=== PATIENT | female | born 1970 | race Two or more races ===

== ENCOUNTER 2016-07-16 09:58 | Emergency (ER) | payer MEDICAID ==
--- NOTE | 2016-07-16 10:05 | ER Document Report ---
ED Medical Screen (RME) - General Chief Complaint: Abdominal Pain Stated Complaint: ABDOMINAL PAIN Mode of Arrival: Ambulatory Information source: Patient Notes: Patient complains left-sided abdominal pain for the past several days. Patient also reports nausea. Patient denies any fever or urinary symptoms. hx: Diabetes, depression, anxiety, hypertension I have greeted and performed a rapid initial assessment of this patient. A comprehensive ED assessment and evaluation of the patient, analysis of test results and completion of the medical decision making process will be conducted by additional ED providers. TRAVEL OUTSIDE OF THE [place] IN LAST 30 DAYS: No - Related Data Allergies/Adverse Reactions: amoxicillin [Amoxicillin] Allergy (Verified 07/16/16 09:59) "slophylline" Allergy (Uncoded 07/16/16 09:59) Past Medical History - Social History Chew tobacco use (# tins/day): No Frequency of alcohol use: None Drug Abuse: None - Past Medical History Cardiac Medical History: Reports: Hx Hypertension Pulmonary Medical History: Reports: Hx Asthma Endocrine Medical History: Reports: Hx Diabetes Mellitus Type 1 Renal/ Medical History: Denies: Hx Peritoneal Dialysis Psychiatric Medical History: Reports: Hx Depression - depression and anxiety Past Surgical History: Reports: Hx Section - x3 - Immunizations Hx Diphtheria, Pertussis, Tetanus Vaccination: Yes Physical Exam - Vital signs Vitals: Temp Pulse Resp BP Pulse Ox 98.1 F 95 14 153/87 H 97 07/16/16 10:02 07/16/16 10:02 07/16/16 10:02 07/16/16 10:02 07/16/16 10:02 - Abdominal Tenderness: Tender - Left upper quadrant Course - Vital Signs Vital signs: Temp Pulse Resp BP Pulse Ox 98.1 F 95 14 153/87 H 97 07/16/16 10:02 07/16/16 10:02 07/16/16 10:02 07/16/16 10:02 07/16/16 10:02
[2016-07-16 11:04] LABS: ABSOLUTE BASOPHILS # (AUTO) 0.1 10^3/uL (0.0-0.2); ABSOLUTE EOSINOPHILS # (AUTO) 0.3 10^3/uL (0.0-0.6); ABSOLUTE LYMPHOCYTES (AUTO) 2.2 10^3/uL (0.5-4.7); ABSOLUTE MONOCYTES (AUTO) 0.4 10^3/uL (0.1-1.4); ABSOLUTE NEUT (AUTO) 5.9 10^3/uL (1.7-8.2); BASOPHILS % (AUTO) 0.6 % (0-2); EOSINOPHILS % (AUTO) 3.1 % (0-6); HEMATOCRIT 39.1 % (36.0-47.0); HEMOGLOBIN 13.2 g/dL (12.0-15.5); HGB HCT DIFFERENCE 0.5; LYMPHOCYTES % (AUTO) 24.4 % (13-45); MEAN CORPUSCULAR HEMOGLOBIN 26.8 pg (27.0-33.4); MEAN CORPUSCULAR HGB CONC 33.7 g/dL (32.0-36.0); MEAN CORPUSCULAR VOLUME 80 fl (80-97); RED BLOOD COUNT 4.91 10^6/uL (3.72-5.28); RED CELL DISTRIBUTION WIDTH 14.6 % (11.5-14.0); SEGMENTED NEUTROPHILS % (AUTO) 66.9 % (42-78); WHITE BLOOD COUNT 8.8 10^3/uL (4.0-10.5)
[2016-07-16 11:15] LABS: APPEARANCE,URINE CLEAR; BILIRUBIN,URINE NEGATIVE (NEGATIVE); GLUCOSE, URINE >=500 mg/dL (NEGATIVE); KETONES,URINE NEGATIVE (NEGATIVE); LEUKOCYTE ESTERASE,URINE NEGATIVE (NEGATIVE); NITRITE,URINE NEGATIVE (NEGATIVE); PROTEIN,URINE NEGATIVE (NEGATIVE); URINE SPECIFIC GRAVITY 1.025; UROBILINOGEN,URINE NEGATIVE mg/dL (<2.0)
[2016-07-16 11:20] LABS: PROTHROMBIN TIME 12.2 SEC (11.4-15.4)
[2016-07-16 11:21] LABS: PARTIAL THROMBOPLASTIN TIME 31.9 SEC (23.5-35.8)
--- NOTE | 2016-07-16 11:24 | ER Document Report ---
ED GI/ - General Chief Complaint: Abdominal Pain Stated Complaint: ABDOMINAL PAIN Mode of Arrival: Ambulatory Information source: Patient TRAVEL OUTSIDE OF THE [place] IN LAST 30 DAYS: No - HPI Patient complains to provider of: Abdominal pain Onset: Other - 2 DAYS AGO Timing/Duration: Gradual Quality of pain: Dull, Pressure, Other - TENDERNESS Severity at maximum: Moderate Severity in ED: Almost gone Context: denies: Bad food, Lifting, Out of the country travel, , Recent trauma Location: LUQ, RUQ Vaginal bleeding (Compared to normal period): None Menstrual period history: denies: Associated symptoms: Blood in stool - SMALL AMTS., Diarrhea, Nausea. denies: Chills, Fever Exacerbated by: Movement, Other - EXTERNAL PRESSURE Relieved by: Remaining still Similar symptoms previously: No Recently seen / treated by doctor: Yes - PCP, BP MED CHANGED TO [facility] - Related Data Allergies/Adverse Reactions: amoxicillin [Amoxicillin] Allergy (Verified 07/16/16 09:59) "slophylline" Allergy (Uncoded 07/16/16 09:59) Past Medical History - General Information source: Patient - Social History Smoking Status: Current Every Day Smoker Chew tobacco use (# tins/day): No Frequency of alcohol use: Rare Drug Abuse: None Lives with: Family Family History: Reviewed & Not Pertinent Patient has suicidal ideation: No Patient has homicidal ideation: No - Past Medical History Cardiac Medical History: Reports: Hx Hypertension Pulmonary Medical History: Reports: Hx Asthma Neurological Medical History: Reports: None Endocrine Medical History: Reports: Hx Diabetes Mellitus Type 1 Renal/ Medical History: Reports: None. Denies: Hx Peritoneal Dialysis Malignancy Medical History: Reports: None GI Medical History: Reports: Hx Hiatal Hernia Musculoskeltal Medical History: Reports None Psychiatric Medical History: Reports: Hx Attention Deficit Hyperactivity Disorder, Hx Depression - depression and anxiety Past Surgical History: Reports: Hx Section - x3, Hx Dilation and Curettage - Immunizations Hx Diphtheria, Pertussis, Tetanus Vaccination: Yes Review of Systems - Review of Systems Constitutional: No symptoms reported EENT: No symptoms reported Cardiovascular: No symptoms reported Respiratory: No symptoms reported Gastrointestinal: See HPI Genitourinary: No symptoms reported Female Genitourinary: No symptoms reported Musculoskeletal: No symptoms reported Skin: No symptoms reported Neurological/Psychological: No symptoms reported Physical Exam - Vital signs Vitals: Temp Pulse Resp BP Pulse Ox 98.1 F 95 14 153/87 H 97 07/16/16 10:02 07/16/16 10:02 07/16/16 10:02 07/16/16 10:02 07/16/16 10:02 Interpretation: Hypertensive. No: Tachycardic, Tachypneic, Febrile - General General appearance: Appears well, Alert In distress: None - Respiratory Respiratory status: No respiratory distress Breath sounds: Normal - Cardiovascular Rhythm: Regular Heart sounds: Normal auscultation Murmur: No - Abdominal Inspection: Obese Distension: No distension Bowel sounds: Normal Tenderness: Tender - RUQ, LUQ - Back Back: Normal - Extremities General upper extremity: Normal inspection General lower extremity: Normal inspection. No: Edema - Neurological Neuro grossly intact: Yes Cognition: Normal Orientation: AAOx4 - Psychological Associated symptoms: Normal affect, Normal mood - Skin Skin Temperature: Warm Skin Moisture: Dry Skin Color: Normal Skin Turgor: Elastic Course - Vital Signs Vital signs: Temp Pulse Resp BP Pulse Ox 98.1 F 86 16 139/80 H 98 07/16/16 17:15 07/16/16 17:15 07/16/16 17:15 07/16/16 17:15 07/16/16 17:15 - Laboratory Result Diagrams: 07/16/16 10:50 07/16/16 10:50 Laboratory results interpreted by me: 07/16/16 07/16/16 07/16/16 10:44 10:50 10:50 MCH 26.8 L RDW 14.6 H Glucose 171 H Lipase 306.2 H Urine Glucose (UA) >=500 H Urine Blood SMALL H Discharge - Discharge Clinical Impression: Abdominal pain Qualifiers: Abdominal location: epigastric Qualified Code(s): R10.13 - Epigastric pain Condition: Stable Disposition: HOME, SELF-CARE Instructions: Abdominal Pain ([facility]) Additional Instructions: REST, DRINK PLENTY OF FLUIDS. YOU MAY TAKE TYLENOL OR IBUPROFEN FOR PAIN, IF NEEDED. HOLD METFORMIN FOR NEXT 48 HOURS. CONTINUE OTHER MEDS USUAL. FOLLOW UP WITH YOUR PRIMARY CARE PROVIDER. Referrals: DARLYN BEVERLY FNP [Primary Care Provider] - Follow up as needed
[2016-07-16 11:28] LABS: ALANINE AMINOTRANSFERASE 41 U/L (9-52); ALBUMIN 3.9 g/dL (3.5-5.0); ALKALINE PHOSPHATASE 98 U/L (38-126); ANION GAP 9 (5-19); ASPARTATE AMINO TRANSFERASE 28 U/L (14-36); BILIRUBIN,TOTAL 0.4 mg/dL (0.2-1.3); BLOOD UREA NITROGEN 14 mg/dL (7-20); CALCIUM 9.4 mg/dL (8.4-10.2); CARBON DIOXIDE 26 mmol/L (22-30); CHLORIDE 106 mmol/L (98-107); CREATININE RESULT 0.67 mg/dL (0.52-1.25); GLUCOSE 171 mg/dL (75-110); LIPASE 306.2 U/L (23-300); POTASSIUM 4.4 mmol/L (3.6-5.0); SODIUM 140.6 mmol/L (137-145); TOTAL PROTEIN 7.1 g/dL (6.3-8.2)
[2016-07-16] MEDS ORDERED: FAMOTIDINE INJ/PF 20 MG/2 ML SDV IV ONE (14:21)
[2016-07-16] MEDS ORDERED: DIPHENHYDRAMINE HCL 50 MG/ML VIAL IV ONE (14:21)
[2016-07-16] MEDS ORDERED: METHYLPREDNISOLONE INJ 125 MG/2 ML SDV IV ONE (14:21)
[2016-07-16 17:16] VITALS: BP 139/80
== END 2016-07-16 17:26 | disposition home or self-care (01) ==
LOC: ER 09:58
DX: R10.13 Epigastric pain (principal); R10.9 Unspecified abdominal pain; F17.210 Nicotine dependence, cigarettes, uncomplicated
CPT/HCPCS: 99284; 51701; 96374; 96375; 36415; 83690; 84703; 85025; 85610; 85730; 80053; 81001; 76700; 74177; J1200; J2930; S0028

== ENCOUNTER 2016-08-12 20:07 | Emergency (ER) | payer MEDICAID ==
[2016-08-12] MEDS ORDERED: ASPIRIN 81 MG TABLET, CHEWABLE PO ONE (20:18)
--- NOTE | 2016-08-12 20:18 | ER Document Report ---
ED Medical Screen (RME) - General Stated Complaint: CHEST AND THROAT DISCOMFORT Notes: Patient is a 40 female presents emergency Department complaining of feeling her chest. Patient states she is a blood pressure cuff at home which did home and 64 5. She was told by her primary care physician set of her blood pressure is elevated at home and she has the symptoms to come to the emergency department. Currently admits to chest pressure and tightness, back pain. Hypertensive at 185/112 I have greeted and performed a rapid initial assessment of this patient. A comprehensive ED assessment and evaluation of the patient, analysis of test results and completion of the medical decision making process will be conducted by additional ED providers. TRAVEL OUTSIDE OF THE [place] IN LAST 30 DAYS: No - Related Data Allergies/Adverse Reactions: amoxicillin [Amoxicillin] Allergy (Verified 07/16/16 09:59) "slophylline" Allergy (Uncoded 07/16/16 09:59) Past Medical History - Past Medical History Cardiac Medical History: Reports: Hx Hypertension Pulmonary Medical History: Reports: Hx Asthma Endocrine Medical History: Reports: Hx Diabetes Mellitus Type 1 Renal/ Medical History: Denies: Hx Peritoneal Dialysis GI Medical History: Reports: Hx Hiatal Hernia Psychiatric Medical History: Reports: Hx Attention Deficit Hyperactivity Disorder, Hx Depression - depression and anxiety Past Surgical History: Reports: Hx Section - x3, Hx Dilation and Curettage - Immunizations Hx Diphtheria, Pertussis, Tetanus Vaccination: Yes
--- NOTE | 2016-08-12 20:59 | ER Document Report ---
ED General - General Chief Complaint: Chest Pain Stated Complaint: CHEST AND THROAT DISCOMFORT Notes: Patient is a 45-year-old female with past medical history of diabetes and hypertension who presents with 2 months of intermittent chest pain and concerns about her blood pressure. She is in the emergency room today because her primary care doctor has instructed her to come due to the degree of her blood pressure elevations. States that normally her blood pressure is in acceptable ranges at home and elevated only in offices but she has been placed on blood pressure medicine anyhow. Describes the sensation in her chest as an intermittent heaviness last approximate 2-3 seconds and then resolves. It occurs approximately 10-20 times daily. Nothing triggers the pain and it does go away on its own. Denies any associated shortness of breath, nausea, vomiting , diaphoresis or radiation of the pain. She has no prior cardiac history. She denies any history of DVT or pulmonary embolus. She does not use estrogen. TRAVEL OUTSIDE OF THE [place] IN LAST 30 DAYS: No - Related Data Allergies/Adverse Reactions: amoxicillin [Amoxicillin] Allergy (Verified 08/12/16 20:22) cephalexin Allergy (Verified 08/12/16 20:22) Past Medical History - General Information source: Patient - Social History Smoking Status: Current Every Day Smoker Chew tobacco use (# tins/day): No Frequency of alcohol use: None Drug Abuse: None Lives with: Spouse/Significant other Family History: Reviewed & Not Pertinent Patient has suicidal ideation: No Patient has homicidal ideation: No - Past Medical History Cardiac Medical History: Reports: Hx Hypertension Pulmonary Medical History: Reports: Hx Asthma Endocrine Medical History: Reports: Hx Diabetes Mellitus Type 1 Renal/ Medical History: Denies: Hx Peritoneal Dialysis GI Medical History: Reports: Hx Hiatal Hernia Psychiatric Medical History: Reports: Hx Attention Deficit Hyperactivity Disorder, Hx Depression - depression and anxiety Past Surgical History: Reports: Hx Section - x3, Hx Dilation and Curettage - Immunizations Hx Diphtheria, Pertussis, Tetanus Vaccination: Yes Review of Systems - Review of Systems Notes: Constitutional: Negative for fever. HENT: Negative for sore throat. Eyes: Negative for visual changes. Cardiovascular: Positive for chest pain. Respiratory: Negative for shortness of breath. Gastrointestinal: Negative for abdominal pain, vomiting or diarrhea. Genitourinary: Negative for dysuria. Musculoskeletal: Negative for back pain. Skin: Negative for rash. Neurological: Negative for headaches, weakness or numbness. 10 point ROS negative except as marked above and in HPI. Physical Exam - Vital signs Vitals: Temp Pulse Resp BP Pulse Ox 98.0 F 114 H 16 185/112 H 99 08/12/16 20:16 08/12/16 20:16 08/12/16 20:16 08/12/16 20:16 08/12/16 20:16 Interpretation: Hypertensive, Tachycardic Notes: PHYSICAL EXAMINATION: GENERAL: Well-appearing, well-nourished and in no acute distress. HEAD: Atraumatic, normocephalic. EYES: Pupils equal round and reactive to light, extraocular movements intact, sclera anicteric, conjunctiva are normal. ENT: nares patent, oropharynx clear without exudates. Moist mucous membranes. NECK: Normal range of motion, supple without lymphadenopathy LUNGS: Breath sounds clear to auscultation bilaterally and equal. No wheezes rales or rhonchi. HEART: Regular rate and rhythm without murmurs ABDOMEN: Soft, nontender, normoactive bowel sounds. No guarding, no rebound. No masses appreciated. EXTREMITIES: Normal range of motion, no pitting or edema. No cyanosis. NEUROLOGICAL: No focal neurological deficits. Moves all extremities spontaneously and on command. PSYCH: Anxious SKIN: Warm, Dry, normal turgor, no rashes or lesions noted. Course - Re-evaluation Re-evalutation: 08/12/16 23:58 Presentation of chest pain in an otherwise well appearing patient. Low clinical suspicion for ACS given clinical history, exam, EKG without ST elevations or depressions, and negative initial troponin. Given that patient has been having these symptoms over the past 2 months, unchanged today, serial troponins Patient does complain of intermittent chest pain over the last 2 months, not suggestive of any life-threatening pathology. HEART score less than or equal to 3. PE also seems unlikely given clinical history, absence of dyspnea. Patient did have tachycardia initially but at time of my assessment her heart rate had completely normalized without intervention and patient herself admits to severe anxiety at time of presentation. She notes that her heart rate is often very high initially when she goes to doctor's appointments or to the emergency department due to her degree of anxiety. She has no history of a DVT or pulmonary embolus in the past, does not use estrogen, and is denying any pleuritic pain. I therefore will not pursue further workup for this diagnosis. CXR without evidence of pneumothorax or pneumonia. No widened mediastinum. Aortic dissection also seems unlikely given history, symmetric pulses, CXR, and vitals. HEART Score: History:0 EC Age:1 Risk Factors:1 Troponin:0 Total: 2 Chest pain in a patient without evidence of cardiac or other serious etiology on workup today. I discussed with patient that, based on their age, risk factors and emergency department testing today, the likelihood that their symptoms are related to a heart attack is very low (estimated risk of heart attack or over the next 30 days of less than 2%). The patient demonstrates decision making capacity and has verbalized an understanding of these risks to me. Based on this, the patient has chosen to follow-up as an outpatient. Usual chest pain return precautions reviewed. The patient states understanding and agreement with this plan. - Vital Signs Vital signs: Temp Pulse Resp BP Pulse Ox 98.4 F 89 17 172/96 H 100 08/12/16 23:48 08/12/16 23:48 08/12/16 23:48 08/12/16 23:48 08/12/16 23:48 - Laboratory Result Diagrams: 08/12/16 21:40 Laboratory results interpreted by me: 08/12/16 21:40 Potassium 3.5 L Carbon Dioxide 21 L Creatinine 0.46 L - Diagnostic Test Radiology reviewed: Image reviewed, Reports reviewed Radiology results interpreted by me: 08/12/16 23:18 Chest x-ray: No acute infiltrate or pneumothorax. No widened mediastinum - EKG Interpretation by Me Additional EKG results interpreted by me: 08/12/16 23:19 Sinus tachycardia. Rate 105. No ST elevations or depressions. QTC is 461. No LVH. Discharge - Discharge Clinical Impression: Essential hypertension Chest pain Qualifiers: Chest pain type: unspecified Qualified Code(s): R07.9 - Chest pain, unspecified Condition: Good Disposition: HOME, SELF-CARE Additional Instructions: You were seen today for chest pain. The exact cause of your pain is unclear. However, based on your cardiac enzyme testing, chest x-ray, and EKG it does not appear that it is from an immediately life-threatening cause at this time. Although your testing here is normal is critical that you follow-up with your primary care physician for continued evaluation of this chest pain and possible stress testing. I recommended you see your physician within the next 24-48 hours to be evaluated for consideration of a stress test. Please return to emergency department immediately if you have worsening of your chest pain, shortness of breath, vomiting, become unable to exert yourself due to pain or difficulty breathing, you pass out, or have any pain that radiates into your arms, jaw, or back. Please also return if you have any additional symptoms that are concerning to you. You were seen today for blood pressure that was high. This is a long-term risk factor for multiple medical problems including heart attack and stroke. However, the blood pressure in of itself will not cause you to have an acute stroke or heart attack over the course of just several days or weeks. You need to have a gradual reduction of your blood pressure back to normal levels over the next several months in conjunction with your primary care physician. Return if you develop headache, weakness, numbness, chest pain, pass out, or have any other symptoms that are concerning to you. Referrals: DARLYN BEVERLY FNP [Primary Care Provider] - Follow up as needed
[2016-08-12 22:11] LABS: ANION GAP 15 (5-19); BLOOD UREA NITROGEN 12 mg/dL (7-20); CALCIUM 9.3 mg/dL (8.4-10.2); CARBON DIOXIDE 21 mmol/L (22-30); CHLORIDE 105 mmol/L (98-107); CREATININE RESULT 0.46 mg/dL (0.52-1.25); GLUCOSE 104 mg/dL (75-110); POTASSIUM 3.5 mmol/L (3.6-5.0); SODIUM 140.5 mmol/L (137-145)
[2016-08-12 23:51] VITALS: BP 172/96
--- NOTE | 2016-08-13 12:11 | EKG REPORT ---
SEVERITY:- BORDERLINE ECG - SINUS TACHYCARDIA PROBABLE LEFT ATRIAL ABNORMALITY : Confirmed by: Analia Davis MD 13-Aug-2016 12:10:52
== END 2016-08-12 23:30 | disposition home or self-care (01) ==
LOC: ER 20:07
DX: R07.9 Chest pain, unspecified (principal); E10.9 Type 1 diabetes mellitus without complications; I10 Essential (primary) hypertension; F17.200 Nicotine dependence, unspecified, uncomplicated; Z88.0 Allergy status to penicillin
CPT/HCPCS: 36415; 71010; 80048; 84484; 93005; 93010; 99285

== ENCOUNTER → 2016-09-05 | Outpatient (CLI) | payer MEDICAID | LOC: WI 10:10 | PROVIDERS: ATTEND Nurse Practitioner | DX: N64.52 Nipple discharge (principal) | CPT/HCPCS: 76642; G0204; 77066 ==

== ENCOUNTER 2016-10-15 10:09 | Emergency (ER) | payer MEDICAID ==
[2016-10-15] MEDS ORDERED: PREDNISONE 20 MG TABLET PO ONE (10:51)
[2016-10-15] MEDS ORDERED: IPRATROPIUM/ALBUTEROL 0.5-2.5 MG/3 ML AMPUL NEB ONE (10:51)
--- NOTE | 2016-10-15 10:57 | ER Document Report ---
HPI - HPI Patient complains to provider of: medication reaction concern Onset: Other Onset/Duration: Persistent Severity: Moderate Pain Level: 3 Context: Patient presents to the emergency department with multiple complaints. Patient reports that she thinks she is having an allergic reaction to her diabetic medication. She has been on the medication for over 2 months. She reports she is experiencing welts and hives to both forearms. She reports it also gives her yeast infections. Reports she has been treated for yeast with diflucan and OTC medications several times. She was evaluated by her primary care provider on Sunday and they discussed adding a medication. Patient does not want to add medication. She has not taken any of her medications today. Reports she has not taken her diabetic medication for a few days. Patient also admits that she recently changed her detergent to a detergent with a scent. No obvious welts or hives today. Patient has not taken any type of Benadryl or antihistamine. Patient also reports that her asthma is flaring up and she is wheezing. Denies other symptoms such as fever vomiting diarrhea. Associated Symptoms: None Exacerbated by: Denies Relieved by: Denies Similar symptoms previously: Yes Recently seen / treated by doctor: Yes - REPRODUCTIVE Reproductive: DENIES: : - DERM Skin Color: Normal Past Medical History - General Information source: Patient Last Menstrual Period: 10/11 - Social History Smoking Status: Current Every Day Smoker Cigarette use (# per day): Yes Frequency of alcohol use: None Drug Abuse: None Occupation: homemaker Lives with: Family Family History: Reviewed & Not Pertinent Patient has suicidal ideation: No Patient has homicidal ideation: No - Past Medical History Cardiac Medical History: Reports: Hx Hypertension Pulmonary Medical History: Reports: Hx Asthma Endocrine Medical History: Reports: Hx Diabetes Mellitus Type 1 Renal/ Medical History: Denies: Hx Peritoneal Dialysis GI Medical History: Reports: Hx Hiatal Hernia Psychiatric Medical History: Reports: Hx Attention Deficit Hyperactivity Disorder, Hx Depression - depression and anxiety Past Surgical History: Reports: Hx Section - x3, Hx Dilation and Curettage - Immunizations Hx Diphtheria, Pertussis, Tetanus Vaccination: Yes Vertical Provider Document - CONSTITUTIONAL Agree With Documented VS: Yes Exam Limitations: No Limitations General Appearance: WD/WN, No Apparent Distress - INFECTION CONTROL TRAVEL OUTSIDE OF THE [place] IN LAST 30 DAYS: No - HEENT HEENT: Atraumatic, Normocephalic. negative: Conjuctival Injection, Pharyngeal Erythema - No peritonsillar abscess good clear voice no trismus, Tympanic Membrane Red - NECK Neck: Normal Inspection, Supple. negative: Lymphadenopathy-Left, Lymphadenopathy-Right - RESPIRATORY Respiratory: No Respiratory Distress, Wheezing O2 Sat by Pulse Oximetry: 98 - CARDIOVASCULAR Cardiovascular: Regular Rate, Regular Rhythm - GI/ABDOMEN Gastrointestinal: Abdomen Soft, Abdomen Non-Tender - BACK Back: Normal Inspection - MUSCULOSKELETAL/EXTREMETIES Musculoskeletal/Extremeties: MAEW, FROM - NEURO Level of Consciousness: Awake, Alert, Appropriate Motor/Sensory: No Motor Deficit - DERM Integumentary: Warm, Dry, No Rash - Her mom knows that she follow Course - Re-evaluation Re-evalutation: 10/15/16 Patient was instructed on the importance of taking her diabetic medication. We discussed risks versus benefits. We discussed the importance of medications. She verbalized understanding 10/15/16 11:50 no wheeze noted post duoneb, pt looks good, reporting she is starting to feel itchy. No hives or welts noted. Pt requesting to leave now, feels much better. Speaks in clear sentences, no SOB. Instructed to take current medications, benadryl as indicated, contact to discuss concerns over medication and wash clothes in different detergent. Patient verbalized understanding to all instructions. - Vital Signs Vital signs: Temp Pulse Resp BP Pulse Ox 98.1 F 97 18 168/97 H 98 10/15/16 10:15 10/15/16 10:15 10/15/16 10:15 10/15/16 10:15 10/15/16 10:15 Discharge - Discharge Clinical Impression: medication reaction concern, History of asthma, Wheeze, Elevated blood pressure reading Condition: Stable Disposition: HOME, SELF-CARE Instructions: Use of Diphenhydramine, Steroid Medication Additional Instructions: *You have been evaluated for a concern over allergy to medication, wheeze, elevated blood pressure reading *Take your medication as prescribed *Take benadryl as indicated *Follow up with your primary care provider Sunday to discuss your medications and possible allergy testing *Return to ED for worsening condition, changes, needs, concerns, trouble breathing Prescriptions: Prednisone [Deltasone 10 mg Tablet] 10 mg PO ASDIR PRN #21 tablet PRN Reason: Referrals: AZIZA HEAD PA-C [Primary Care Provider] - 10/16/16
[2016-10-15 11:53] VITALS: BP 149/90
== END 2016-10-15 11:51 | disposition home or self-care (01) ==
LOC: ER 10:09
PROC: 3E0F7GC Introduction of Other Therapeutic Substance into Respiratory Tract, Via Natural or Artificial Opening (ICD-10-PCS; principal; 2016-10-15)
DX: J45.909 Unspecified asthma, uncomplicated (principal); R03.0 Elevated blood-pressure reading, without diagnosis of hypertension; E10.9 Type 1 diabetes mellitus without complications; L29.9 Pruritus, unspecified; F17.210 Nicotine dependence, cigarettes, uncomplicated
CPT/HCPCS: 94640; 99283; J7512; J7620

== ENCOUNTER 2017-04-15 10:43 | Emergency (ER) | payer MEDICAID ==
[2017-04-15] MEDS ORDERED: NORMAL SALINE 1000 ML 1,000 ML IV ONE (11:24)
--- NOTE | 2017-04-15 11:48 | ER Document Report ---
ED General - General Chief Complaint: High Blood Sugar Stated Complaint: BLOOD SUGAR CONCERNS Time Seen by Provider: 04/15/17 11:22 TRAVEL OUTSIDE OF THE [place] IN LAST 30 DAYS: No - HPI Notes: Patient is a 46-year-old female with a h/o DM and HTN who presents the ED complaining of elevated sugars over the last month ranging between 300-450. Patient states that she is being seen by her primary care provider and is on Lantus, Januvia, but is allergic to metformin and Invokana. Patient states that she does check her sugars routinely. Patient states she still eating and drinking without difficulties. She is still urinating normally and having normal bowel movements. Patient states that her last A1c check was 8.4. Patient does not have any other concerns or complaints. Patient is questioning why she cannot get her sugar down when she is trying to eat a healthier diet and taking those medications. Patient does not have an sports doctor at this time. Patient denies any IV drug use. Denies any headache, fever, head injury , neck pain, changes in vision/speech/mentation/hearing, URI, sore throat, chest pain, palpitations, syncope, cough, shortness of breath, wheeze, dyspnea, abdominal pain, nausea/vomiting/diarrhea, urinary retention, dysuria, hematuria , back pain, loss of control of bowel or bladder, numbness/tingling, saddle anesthesia, muscle paralysis/weakness, or rash. - Related Data Allergies/Adverse Reactions: amoxicillin [Amoxicillin] Allergy (Verified 10/15/16 10:16) cephalexin Allergy (Verified 10/15/16 10:16) metformin Adverse Reaction (Verified 04/15/17 12:30) sitagliptin [From Januvia] Adverse Reaction (Verified 04/15/17 12:30) Past Medical History - Social History Smoking Status: Current Every Day Smoker Frequency of alcohol use: None Drug Abuse: None Family History: Reviewed & Not Pertinent Patient has suicidal ideation: No Patient has homicidal ideation: No - Past Medical History Cardiac Medical History: Reports: Hx Hypertension Pulmonary Medical History: Reports: Hx Asthma Endocrine Medical History: Reports: Hx Diabetes Mellitus Type 1 Renal/ Medical History: Denies: Hx Peritoneal Dialysis GI Medical History: Reports: Hx Hiatal Hernia Psychiatric Medical History: Reports: Hx Attention Deficit Hyperactivity Disorder, Hx Depression - depression and anxiety Past Surgical History: Reports: Hx Section - x3, Hx Dilation and Curettage - Immunizations Hx Diphtheria, Pertussis, Tetanus Vaccination: Yes Review of Systems - Review of Systems Notes: REVIEW OF SYSTEMS: CONSTITUTIONAL : Denies fever, chills, or sweats. Denies recent illness. EENT: Denies eye, ear, throat, or mouth pain or symptoms. Denies nasal or sinus congestion or discharge. Denies throat, tongue, or mouth swelling or difficulty swallowing. CARDIOVASCULAR: Denies chest pain. Denies palpitations or racing or irregular heart beat. Denies ankle edema. RESPIRATORY: Denies cough, cold, or chest congestion. Denies shortness of breath, difficulty breathing, or wheezing. GASTROINTESTINAL: Denies abdominal pain or distention. Denies nausea, vomiting , or diarrhea. Denies blood in vomitus, stools, or per rectum. Denies black, tarry stools. Denies constipation. GENITOURINARY: Denies difficulty urinating, painful urination, burning, frequency, blood in urine, or discharge. MUSCULOSKELETAL: Denies back or neck pain or stiffness. Denies joint pain or swelling. SKIN: Denies rash, lesions or sores. NEUROLOGICAL: Denies confusion or altered mental status. Denies passing out or loss of consciousness. Denies dizziness or lightheadedness. Denies headache. Denies weakness or paralysis or loss of use of either side. Denies problems with gait or speech. Denies sensory loss, numbness, or tingling. Denies seizures. ALL OTHER SYSTEMS REVIEWED AND NEGATIVE. Dictation was performed using [employer] voice recognition software Physical Exam - Vital signs Vitals: Temp Pulse Resp BP Pulse Ox 98.6 F 104 H 16 161/101 H 99 04/15/17 10:52 04/15/17 10:52 04/15/17 10:52 04/15/17 10:52 04/15/17 10:52 Notes: PHYSICAL EXAMINATION: GENERAL: Well-appearing, well-nourished and in no acute distress. A&Ox4 HEAD: Atraumatic, normocephalic. EYES: Pupils equal round and reactive to light, extraocular movements intact, sclera anicteric, conjunctiva are normal. ENT: Nares patent and without discharge. oropharynx clear without exudates. No tonsilar hypertrophy or erythema. Moist mucous membranes. NECK: Normal range of motion, supple without lymphadenopathy LUNGS: Breath sounds clear to auscultation bilaterally and equal. No wheezes rales or rhonchi. HEART: Regular rate and rhythm without murmurs, rubs, gallops. ABDOMEN: Soft, nontender, nondistended abdomen. No guarding, no rebound. No masses appreciated. Normal bowel sounds present. No CVA tenderness bilaterally. Musculoskeletal: Ext b/l: FROM to passive/active. Strength 5+/5. Extremities: No cyanosis, clubbing, or edema b/l. Peripheral pulses 2+. Capillary refill less than 3 seconds. NEUROLOGICAL: Cranial nerves grossly intact. Normal speech, normal gait. Normal sensory, motor exams PSYCH: Normal mood, normal affect. SKIN: Warm, Dry, normal turgor, no rashes or lesions noted. Course - Re-evaluation Re-evalutation: 04/15/17 12:43 Patient is an afebrile, well-hydrated, 46-year-old female who presents the ED with hyperglycemia currently 276, POC on arrival was 386. Vitals are stable. PE is otherwise unremarkable. 1 L of normal saline was given today. CBC, CMP, urinalysis were unremarkable for any acute pathology. Pt is also asymptomatic otherwise. Low suspicion for any systemic emergent condition at this time including but not limited to DKA, hyperosmolar, sepsis, meningitis, CVA, TIA. Advised patient that she needs to continue her home medications as directed. Recheck with your PCM this week to readdress hyperglycemia. Return to the ED with any worsening/concerning symptoms otherwise as reviewed in discharge. Consider consult with endocrinology as well. Patient is in agreement. - Vital Signs Vital signs: Temp Pulse Resp BP Pulse Ox 98.6 F 104 H 17 122/68 100 04/15/17 10:52 04/15/17 10:52 04/15/17 12:31 04/15/17 12:31 04/15/17 12:31 - Laboratory Result Diagrams: 04/15/17 11:59 04/15/17 11:59 Laboratory results interpreted by me: 04/15/17 04/15/17 04/15/17 10:53 11:56 11:59 MCV 77 L MCH 25.8 L RDW 15.4 H Creatinine Glucose POC Glucose 385 H Urine Glucose (UA) >=500 H Urine Blood SMALL H 04/15/17 11:59 MCV MCH RDW Creatinine 0.51 L Glucose 276 H POC Glucose Urine Glucose (UA) Urine Blood Discharge - Discharge Clinical Impression: Hyperglycemia Condition: Stable Disposition: HOME, SELF-CARE Instructions: Hyperglycemia ([facility]) Additional Instructions: Maintain adequate fluid intake avoid foods high in carbohydrates and glucose Continue home medications as directed Continue monitoring blood glucose levels and keep a log Recheck with your PCM this week Consider consult with endocrinology Return to the ED with any worsening symptoms and/or development of fever, headache, chest pain, palpitations, syncope, shortness of breath, trouble breathing, abdominal pain, n/v/d, blood in stool/urine, loss of control of bowel /bladder, urinary retention, muscle weakness/paralysis, saddle anesthesia, numbness/tingling, or other worsening symptoms that are concerning to you. Referrals: TALAT TORO MD [NO LOCAL MD] - Follow up as needed
[2017-04-15 12:12] LABS: ABSOLUTE BASOPHILS # (AUTO) 0.1 10^3/uL (0.0-0.2); ABSOLUTE EOSINOPHILS # (AUTO) 0.2 10^3/uL (0.0-0.6); ABSOLUTE LYMPHOCYTES (AUTO) 1.5 10^3/uL (0.5-4.7); ABSOLUTE MONOCYTES (AUTO) 0.5 10^3/uL (0.1-1.4); ABSOLUTE NEUT (AUTO) 5.1 10^3/uL (1.7-8.2); BASOPHILS % (AUTO) 0.7 % (0-2); EOSINOPHILS % (AUTO) 3.2 % (0-6); HEMATOCRIT 38.7 % (36.0-47.0); HEMOGLOBIN 12.9 g/dL (12.0-15.5); LYMPHOCYTES % (AUTO) 20.4 % (13-45); MEAN CORPUSCULAR HEMOGLOBIN 25.8 pg (27.0-33.4); MEAN CORPUSCULAR HGB CONC 33.4 g/dL (32.0-36.0); MEAN CORPUSCULAR VOLUME 77 fl (80-97); MONOCYTES % (AUTO) 6.2 % (3-13); RED CELL DISTRIBUTION WIDTH 15.4 % (11.5-14.0); SEGMENTED NEUTROPHILS % (AUTO) 69.5 % (42-78); WHITE BLOOD COUNT 7.4 10^3/uL (4.0-10.5)
[2017-04-15 12:31] LABS: ALANINE AMINOTRANSFERASE 46 U/L (9-52); ALBUMIN 4.3 g/dL (3.5-5.0); ALKALINE PHOSPHATASE 109 U/L (38-126); ANION GAP 12 (5-19); ASPARTATE AMINO TRANSFERASE 33 U/L (14-36); BILIRUBIN,DIRECT 0.4 mg/dL (0.0-0.4); BILIRUBIN,TOTAL 0.5 mg/dL (0.2-1.3); BLOOD UREA NITROGEN 8 mg/dL (7-20); CALCIUM 9.5 mg/dL (8.4-10.2); CARBON DIOXIDE 26 mmol/L (22-30); CHLORIDE 103 mmol/L (98-107); CREATININE RESULT 0.51 mg/dL (0.52-1.25); GLUCOSE 276 mg/dL (75-110); POTASSIUM 4.3 mmol/L (3.6-5.0); SODIUM 141.2 mmol/L (137-145); TOTAL PROTEIN 7.5 g/dL (6.3-8.2)
[2017-04-15 12:32] LABS: APPEARANCE,URINE CLEAR; BILIRUBIN,URINE NEGATIVE (NEGATIVE); GLUCOSE, URINE >=500 mg/dL (NEGATIVE); KETONES,URINE NEGATIVE (NEGATIVE); LEUKOCYTE ESTERASE,URINE NEGATIVE (NEGATIVE); NITRITE,URINE NEGATIVE (NEGATIVE); PROTEIN,URINE NEGATIVE (NEGATIVE); URINE SPECIFIC GRAVITY 1.036; UROBILINOGEN,URINE NEGATIVE mg/dL (<2.0)
[2017-04-15] MEDS ORDERED: KETOROLAC TROMETHAMINE INJ/PF 30 MG/1 ML SDV IV ONE (12:54)
[2017-04-15 13:46] VITALS: BP 151/80
== END 2017-04-15 13:36 | disposition home or self-care (01) ==
LOC: ER 10:43
DX: E11.65 Type 2 diabetes mellitus with hyperglycemia (principal); I10 Essential (primary) hypertension; Z79.4 Long term (current) use of insulin; F17.200 Nicotine dependence, unspecified, uncomplicated
CPT/HCPCS: 99283; 96361; 96374; 36415; 82962; 85025; 80053; 81001; J1885; J7030

== ENCOUNTER 2017-07-11 12:11 | Emergency (ER) | payer MEDICAID ==
[2017-07-11] MEDS ORDERED: NORMAL SALINE 1000 ML 1,000 ML IV ONE ×2 (13:00→14:19)
--- NOTE | 2017-07-11 13:01 | ER Document Report ---
ED Medical Screen (RME) - General Chief Complaint: Headache Stated Complaint: HEADACHE,VOMITING Time Seen by Provider: 07/11/17 13:00 Notes: pt recently diagnosed with astrocytoma, presents with goodson, nausea, lethargy. followed by courtney TRAVEL OUTSIDE OF THE [place] IN LAST 30 DAYS: No - Related Data Allergies/Adverse Reactions: amoxicillin [Amoxicillin] Allergy (Verified 07/11/17 12:14) cephalexin Allergy (Verified 07/11/17 12:14) metformin Adverse Reaction (Verified 07/11/17 12:14) sitagliptin [From Januvia] Adverse Reaction (Verified 07/11/17 12:14) Past Medical History - Social History Chew tobacco use (# tins/day): No Frequency of alcohol use: None Drug Abuse: None - Past Medical History Cardiac Medical History: Reports: Hx Hypertension Pulmonary Medical History: Reports: Hx Asthma Endocrine Medical History: Reports: Hx Diabetes Mellitus Type 1 Renal/ Medical History: Denies: Hx Peritoneal Dialysis GI Medical History: Reports: Hx Hiatal Hernia Psychiatric Medical History: Reports: Hx Attention Deficit Hyperactivity Disorder, Hx Depression - depression and anxiety Past Surgical History: Reports: Hx Section - x3, Hx Dilation and Curettage - Immunizations Hx Diphtheria, Pertussis, Tetanus Vaccination: Yes Physical Exam - Vital signs Vitals: Temp Pulse Resp BP Pulse Ox 98.7 F 77 16 157/93 H 97 07/11/17 12:21 07/11/17 12:21 07/11/17 12:21 07/11/17 12:21 07/11/17 12:21 Course - Vital Signs Vital signs: Temp Pulse Resp BP Pulse Ox 98.7 F 77 16 157/93 H 97 07/11/17 12:21 07/11/17 12:21 07/11/17 12:21 07/11/17 12:21 07/11/17 12:21
[2017-07-11 13:31] LABS: APPEARANCE,URINE CLEAR; BILIRUBIN,URINE NEGATIVE (NEGATIVE); COLOR,URINE STRAW; GLUCOSE, URINE >=500 mg/dL (NEGATIVE); KETONES,URINE NEGATIVE (NEGATIVE); LEUKOCYTE ESTERASE,URINE NEGATIVE (NEGATIVE); NITRITE,URINE NEGATIVE (NEGATIVE); PROTEIN,URINE NEGATIVE (NEGATIVE); URINE SPECIFIC GRAVITY 1.009; UROBILINOGEN,URINE NEGATIVE mg/dL (<2.0)
[2017-07-11 13:52] LABS: ABSOLUTE BASOPHILS # (AUTO) 0.1 10^3/uL (0.0-0.2); ABSOLUTE EOSINOPHILS # (AUTO) 0.3 10^3/uL (0.0-0.6); ABSOLUTE LYMPHOCYTES (AUTO) 2.8 10^3/uL (0.5-4.7); ABSOLUTE MONOCYTES (AUTO) 0.4 10^3/uL (0.1-1.4); ABSOLUTE NEUT (AUTO) 5.2 10^3/uL (1.7-8.2); EOSINOPHILS % (AUTO) 3.1 % (0-6); HEMATOCRIT 43.7 % (36.0-47.0); HEMOGLOBIN 14.7 g/dL (12.0-15.5); LYMPHOCYTES % (AUTO) 31.5 % (13-45); MEAN CORPUSCULAR HEMOGLOBIN 25.5 pg (27.0-33.4); MEAN CORPUSCULAR HGB CONC 33.6 g/dL (32.0-36.0); MEAN CORPUSCULAR VOLUME 76 fl (80-97); MONOCYTES % (AUTO) 4.8 % (3-13); PLATELET COUNT 261 10^3/uL (150-450); RED BLOOD COUNT 5.75 10^6/uL (3.72-5.28); RED CELL DISTRIBUTION WIDTH 16.9 % (11.5-14.0); SEGMENTED NEUTROPHILS % (AUTO) 59.6 % (42-78); TOTAL CELLS COUNTED % (AUTO) 100 %; WHITE BLOOD COUNT 8.7 10^3/uL (4.0-10.5)
[2017-07-11 14:01] LABS: ALANINE AMINOTRANSFERASE 69 U/L (9-52); ALBUMIN 4.7 g/dL (3.5-5.0); ALKALINE PHOSPHATASE 118 U/L (38-126); ANION GAP 10 (5-19); ASPARTATE AMINO TRANSFERASE 47 U/L (14-36); BILIRUBIN,DIRECT 0.5 mg/dL (0.0-0.4); BILIRUBIN,TOTAL 0.6 mg/dL (0.2-1.3); BLOOD UREA NITROGEN 8 mg/dL (7-20); CALCIUM 10.1 mg/dL (8.4-10.2); CARBON DIOXIDE 21 mmol/L (22-30); CHLORIDE 106 mmol/L (98-107); GLUCOSE 223 mg/dL (75-110); POTASSIUM 4.4 mmol/L (3.6-5.0); SODIUM 136.7 mmol/L (137-145)
--- NOTE | 2017-07-11 14:08 | ER Document Report ---
ED General - General Chief Complaint: Headache Stated Complaint: HEADACHE,VOMITING Time Seen by Provider: 07/11/17 13:00 Mode of Arrival: Ambulatory Information source: Patient TRAVEL OUTSIDE OF THE [place] IN LAST 30 DAYS: No - HPI Onset: This morning Onset/Duration: Gradual Quality of pain: No pain Associated symptoms: Headache, Nausea, Vomiting, Weakness. denies: Nonproductive cough, Productive cough, Fever Exacerbated by: Denies Relieved by: Denies Similar symptoms previously: Yes - NOT RECENT Recently seen / treated by doctor: Yes - PCP - Related Data Allergies/Adverse Reactions: amoxicillin [Amoxicillin] Allergy (Verified 07/11/17 12:14) cephalexin Allergy (Verified 07/11/17 12:14) metformin Adverse Reaction (Verified 07/11/17 12:14) sitagliptin [From Januvia] Adverse Reaction (Verified 07/11/17 12:14) Past Medical History - General Information source: Patient - Social History Smoking Status: Never Smoker Chew tobacco use (# tins/day): No Frequency of alcohol use: None Drug Abuse: None Family History: Reviewed & Not Pertinent Patient has suicidal ideation: No Patient has homicidal ideation: No - Past Medical History Cardiac Medical History: Reports: Hx Hypertension Pulmonary Medical History: Reports: Hx Asthma Endocrine Medical History: Reports: Hx Diabetes Mellitus Type 1 Renal/ Medical History: Denies: Hx Peritoneal Dialysis Malignancy Medical History: Reports: Hx Brain Cancer - ASYTROCYTOMA, OPEN Bx & RESECTION PLANNED @ [facility] NEXT MONTH GI Medical History: Reports: Hx Hiatal Hernia, Hx Pancreatitis Psychiatric Medical History: Reports: Hx Attention Deficit Hyperactivity Disorder, Hx Depression - depression and anxiety Past Surgical History: Reports: Hx Section - x3, Hx Dilation and Curettage - Immunizations Hx Diphtheria, Pertussis, Tetanus Vaccination: Yes Review of Systems - Review of Systems Constitutional: Weakness. denies: Fever EENT: No symptoms reported Cardiovascular: No symptoms reported Respiratory: No symptoms reported Gastrointestinal: See HPI Genitourinary: No symptoms reported Female Genitourinary: No symptoms reported Musculoskeletal: No symptoms reported Skin: No symptoms reported Neurological/Psychological: Headaches Physical Exam - Vital signs Vitals: Temp Pulse Resp BP Pulse Ox 98.7 F 77 16 157/93 H 97 07/11/17 12:21 07/11/17 12:21 07/11/17 12:21 07/11/17 12:21 07/11/17 12:21 Interpretation: Hypertensive. No: Tachycardic, Tachypneic, Febrile - General General appearance: Appears well, Alert In distress: None - HEENT Head: Normocephalic Eyes: Normal Conjunctiva: Normal Ears: Normal Nasal: Normal Mouth/Lips: Normal Mucous membranes: Dry - MILDLY Pharynx: Normal Neck: Normal, Supple - Respiratory Respiratory status: No respiratory distress - Cardiovascular Rhythm: Regular - Abdominal Inspection: Normal Distension: No distension Bowel sounds: Hypoactive Tenderness: Nontender - Extremities General upper extremity: Normal inspection General lower extremity: Normal inspection - Neurological Neuro grossly intact: Yes Cognition: Normal Orientation: AAOx4 - Psychological Associated symptoms: Normal affect, Normal mood - Skin Skin Temperature: Warm Skin Moisture: Dry Skin Color: Normal Skin Turgor: Elastic Course - Vital Signs Vital signs: Temp Pulse Resp BP Pulse Ox 98.7 F 77 16 157/93 H 97 07/11/17 12:21 07/11/17 12:21 07/11/17 12:21 07/11/17 12:21 07/11/17 12:21 - Laboratory Result Diagrams: 07/11/17 13:28 07/11/17 13:28 Laboratory results interpreted by me: 07/11/17 07/11/17 07/11/17 13:15 13:28 13:28 RBC 5.75 H MCV 76 L MCH 25.5 L RDW 16.9 H Sodium 136.7 L Carbon Dioxide 21 L Glucose 223 H POC Glucose Direct Bilirubin 0.5 H AST 47 H ALT 69 H Urine Glucose (UA) >=500 H Urine Blood MODERATE H 07/11/17 14:57 RBC MCV MCH RDW Sodium Carbon Dioxide Glucose POC Glucose 201 H Direct Bilirubin AST ALT Urine Glucose (UA) Urine Blood Discharge - Discharge Clinical Impression: Gastroenteritis, Dehydration Hyperglycemia due to type 2 diabetes mellitus Qualifiers: Diabetes mellitus machine splitter insulin use: unspecified usp insulin use status Qualified Code(s): E11.65 - Type 2 diabetes mellitus with hyperglycemia Headache Qualifiers: Headache type: unspecified Headache chronicity pattern: acute headache Intractability: not intractable Qualified Code(s): R51 - Headache Condition: Stable Disposition: HOME, SELF-CARE Instructions: Antinausea Medication ([facility]), Clear Liquid Diet ([facility]), Headache ( [facility]) Additional Instructions: CLEAR LIQUID DIET UNTIL IMPROVED, THEN GRADUALLY ADVANCE DIET. YOU MAY TAKE ZOFRAN FOR NAUSEA CONTROL IF NEEDED. YOU MAY TAKE TYLENOL FOR HEADACHE SYMPTOMS IF NEEDED. CONTINUE YOUR USUAL DIABETIC MEDICATION. FOLLOW UP WITH YOUR PRIMARY CARE PROVIDER SCHEDULED, OR SOONER IF PROBLEMS. RETURN TO E.R. IF YOU GET WORSE IN ANY WAY. Prescriptions: Ondansetron [Zofran Odt 4 mg Tablet] 1 - 2 tab PO Q4H #10 tab.[email or web address] Referrals: DARLYN BEVERLY FNP [Primary Care Provider] - Follow up as needed
[2017-07-11] MEDS ORDERED: INSULIN REG, HUMAN 100 UNIT/ML 3 ML VIAL (PYX) SUBCUT ONE (14:23)
[2017-07-11 16:51] VITALS: BP 146/69
== END 2017-07-11 16:51 | disposition home or self-care (01) ==
LOC: ER 12:11
DX: E86.0 Dehydration (principal); K52.9 Noninfective gastroenteritis and colitis, unspecified; E11.65 Type 2 diabetes mellitus with hyperglycemia; R51 Headache; R53.1 Weakness; I10 Essential (primary) hypertension; Z88.0 Allergy status to penicillin
CPT/HCPCS: 99284; 96360; 96361; 36415; 82962; 83690; 85025; 80053; 81001; J1815; J7030

== ENCOUNTER 2017-11-22 10:58 | Emergency (ER) | payer MEDICAID ==
[2017-11-22 11:08] VITALS: BP 145/85
[2017-11-22] MEDS ORDERED: MELOXICAM 15 MG TABLET PO ONE (11:26)
--- NOTE | 2017-11-22 11:32 | ER Document Report ---
ED General - General Chief Complaint: Leg Pain Stated Complaint: RIGHT LEG PAIN Time Seen by Provider: 11/22/17 11:17 Notes: 47-year-old female status post low back surgery August 03, 2017 here with complaints of continued right leg spasms that have been ongoing for the past 1 month but worsened 2 days ago. She has chronic numbness in both lower extremities from after the surgery however states that he has been improving with time. She denies any weakness tingling. Denies incontinence retention. Denies fevers chills. She has been taking ibuprofen methocarbamol cyclobenzaprine with some decent relief. TRAVEL OUTSIDE OF THE [place] IN LAST 30 DAYS: No - Related Data Allergies/Adverse Reactions: amoxicillin [Amoxicillin] Allergy (Verified 11/22/17 11:00) cephalexin Allergy (Verified 11/22/17 11:00) metformin Adverse Reaction (Verified 11/22/17 11:00) sitagliptin [From Januvia] Adverse Reaction (Verified 11/22/17 11:00) Past Medical History - Social History Smoking Status: Unknown if Ever Smoked Family History: Reviewed & Not Pertinent Patient has suicidal ideation: No Patient has homicidal ideation: No - Past Medical History Cardiac Medical History: Reports: Hx Hypertension Pulmonary Medical History: Reports: Hx Asthma Endocrine Medical History: Reports: Hx Diabetes Mellitus Type 1, Hx Diabetes Mellitus Type 2 Renal/ Medical History: Denies: Hx Peritoneal Dialysis Malignancy Medical History: Reports: Hx Brain Cancer - ASYTROCYTOMA, OPEN Bx & RESECTION PLANNED @ [facility] NEXT MONTH GI Medical History: Reports: Hx Gastroesophageal Reflux Disease, Hx Hiatal Hernia, Hx Pancreatitis Psychiatric Medical History: Reports: Hx Attention Deficit Hyperactivity Disorder, Hx Depression - depression and anxiety Past Surgical History: Reports: Hx Section - x3, Hx Dilation and Curettage, Hx Nose Surgery - Reconstruction - Immunizations Hx Diphtheria, Pertussis, Tetanus Vaccination: Yes Review of Systems - Review of Systems Notes: See history of present illness for pertinent positive review of systems; otherwise all review of systems have been reviewed and are negative Physical Exam - Vital signs Vitals: Temp Pulse Resp BP Pulse Ox 98.9 F 82 20 145/85 H 98 11/22/17 11:06 11/22/17 11:06 11/22/17 11:06 11/22/17 11:06 11/22/17 11:06 - Notes Notes: PHYSICAL EXAMINATION: GENERAL: Well-appearing and in no acute distress. HEAD: Atraumatic, normocephalic. EYES: Pupils equal round and reactive to light, extraocular movements intact, sclera anicteric, conjunctiva are normal. ENT: nares patent, oropharynx clear without exudates. Moist mucous membranes. NECK: Normal range of motion, supple without lymphadenopathy LUNGS: CTAB and equal. No wheezes rales or rhonchi. HEART: Regular rate and rhythm without murmurs ABDOMEN: Soft, no tenderness. No facial grimacing/wincing upon palpation. No guarding, no rebound. EXTREMITIES: Normal range of motion, no pitting edema. No cyanosis. Minimal bilateral lower back muscle TTP but no midline spine TTP NEUROLOGICAL: Cranial nerves grossly intact. Normal motor exams BLEs. Abnormal sensation BLEs (however patient states this is baseline ever since her August 03, 2017 surgery) PSYCH: Normal mood, normal affect. SKIN: Warm, Dry, normal turgor, no rashes or lesions noted Course - Re-evaluation Re-evalutation: 11/22/17 11:30 MEDICAL DECISION MAKING: Concern for acute on chronic leg spasms Discussed with her to use her methocarbamol and cyclobenzaprine maximum number of times daily She is going to call the prescribing doctor to double check what is the maximum number of times daily she can take them both Will prescribe her meloxicam to replace the ibuprofen Instructed follow-up PCP and/or spine surgeon next day or few Patient understands and agrees to the plan of care - Vital Signs Vital signs: Temp Pulse Resp BP Pulse Ox 98.9 F 82 20 145/85 H 98 11/22/17 11:06 11/22/17 11:06 11/22/17 11:06 11/22/17 11:06 11/22/17 11:06 Discharge - Discharge Clinical Impression: Leg muscle spasm Qualifiers: Laterality: right Qualified Code(s): M62.838 - Other muscle spasm Condition: Good Disposition: HOME, SELF-CARE Additional Instructions: You were seen in the emergency department at [facility]. Replace the ibuprofen with meloxicam. Continue using the methocarbamol and cyclobenzaprine. Please followup with your primary physician in the next few days for further management/evaluation. Please return to the emergency department for worsening of symptoms or any symptom that you deem to be concerning or life-threatening. Thank you for allowing us to be part of your care. Prescriptions: Meloxicam 7.5 mg PO DAILYP PRN #7 tablet PRN Reason: Referrals: DARLYN BEVERLY FNP [Primary Care Provider] - Follow up as needed
== END 2017-11-22 11:33 | disposition home or self-care (01) ==
LOC: ER 10:58
DX: M62.838 Other muscle spasm (principal); R20.0 Anesthesia of skin; Z98.890 Other specified postprocedural states; I10 Essential (primary) hypertension; J45.909 Unspecified asthma, uncomplicated; E11.9 Type 2 diabetes mellitus without complications; Z88.0 Allergy status to penicillin; Z88.1 Allergy status to other antibiotic agents; Z85.841 Personal history of malignant neoplasm of brain
CPT/HCPCS: 99283

== ENCOUNTER → 2018-02-19 | Outpatient (CLI) | payer MEDICAID ==
--- NOTE | 2018-02-19 16:45 | WOMENS IMAGING REPORT ---
EXAM DESCRIPTION: 3D SCREENING MAMMO BILAT COMPLETED DATE/TIME: 02/19/2018 11:21 am REASON FOR STUDY: BILATERAL SCREENING MAMMO 3D/Z12.31 Z12.31 ENCNTR SCREEN MAMMOGRAM FOR MALIGNANT NEOPLASM OF [place] COMPARISON: 2017 TECHNIQUE: Standard craniocaudal and mediolateral oblique views of each breast recorded using digita l acquisition and breast tomosynthesis. LIMITATIONS: None. FINDINGS: No masses, calcifications or architectural distortion. No areas of suspicion. Read with the assistance of CAD. .[facility] - R2 Cenova Version 1.3 .[facility] - R2 Cenova Version 1.3 .[facility] - R2 Cenova Version 2.4 .[facility] [place] - R2 Cenova Version 2.4 .[facility] - R2 Bundling Machine Operator Version 9.2 IMPRESSION: NORMAL MAMMOGRAM. BIRADS 1. BREAST DENSITY: b. There are scattered areas of fibroglandular density. BIRAD: 1 NEGATIVE RECOMMENDATION: ROUTINE SCREENING COMMENT: The patient has been notified of the results by letter per SA requirements. Additional no tification policies are in place for contacting patient with suspicious or incomplete findings. Quality ID #225: The [employer] recommends an annual screening mammogram for women aged 40 years or over. This facility utilizes a reminder system to ensure that all patients receive reminder letters, and/or direct phone calls for appointments. This includes reminders for routine scr eening mammograms, diagnostic mammograms, or other Breast Imaging Interventions when appropriate. Th is patient will be placed in the appropriate reminder system. The [employer] (ACR) has developed recommendations for screening MRI of the breast s in certain patient populations, to be used in conjunction with mammography. Breast MRI surveillanc e may be appropriate for women with more than 20% lifetime risk of developing breast cancer as deter mined by genetic testing, significant family history of the disease, or history of mantle radiation f or Hodgkins Disease. ACR Practice Guidelines 2008. DBT Technology DBT is a type of tomographic mammography. With conventional mammography, overlapping breast tissue ma y make lesions difficult to detect, even with good compression. DBT uses an x-ray tube that rotates a round the breast, taking images at different angles. These images are then combined to create thin sl ices of the breast that the radiologist can view as a 3D reconstruction. The Replise unit can perform full-field digital mammograms (2D imaging); or DBT (3D imaging); or both, in a combination mode that quickly performs both the mammogram and the tomosynthesis scan while the breast is still compressed. PQRS 6045F: Fluoroscopic imaging is not utilized for breast tomosynthesis. TECHNICAL DOCUMENTATION: FINDING NUMBER: (1) ASSESSMENT: (1) JOB ID: [id number] [email or web address]- All Rights Reserved Reading location - IP/workstation name: [email or web address]
== END ==
LOC: WI 10:27
PROVIDERS: ATTEND Nurse Practitioner
DX: Z12.31 Encounter for screening mammogram for malignant neoplasm of breast (principal)
CPT/HCPCS: 77063; 77067

== ENCOUNTER → 2019-02-20 | Outpatient (CLI) | payer MEDICAID ==
--- NOTE | 2019-02-21 10:39 | WOMENS IMAGING REPORT ---
EXAM DESCRIPTION: 3D SCREENING MAMMO BILAT COMPLETED DATE/TIME: 02/20/2019 10:10 am REASON FOR STUDY: Z12.31 SCREENING MAMMO Z12.31 ENCNTR SCREEN MAMMOGRAM FOR MALIGNANT NEOPLASM OF B RE COMPARISON: Multiple since 2016 EXAM PARAMETERS: Views: Standard craniocaudal and mediolateral oblique views of each breast recorded using digital acquisition and breast tomosynthesis. Read with the assistance of CAD. .[facility] - R2 Golf Club Weighter Version 9.2 LIMITATIONS: None. FINDINGS: No suspicious masses, suspicious calcifications or architectural distortion. No areas of c oncern. IMPRESSION: NEGATIVE MAMMOGRAM. BIRADS 1. BREAST DENSITY: b. There are scattered areas of fibroglandular density. BIRAD: ASSESSMENT: 1 NEGATIVE RECOMMENDATION: ROUTINE SCREENING COMMENT: The patient has been notified of the results by letter per MQSA requirements. Additional no tification policies are in place for contacting patient with suspicious or incomplete findings. Quality ID #225: The [employer] recommends an annual screening mammogram for women aged 40 years or over. This facility utilizes a reminder system to ensure that all patients receive reminder letters, and/or direct phone calls for appointments. This includes reminders for routine scr eening mammograms, diagnostic mammograms, or other Breast Imaging Interventions when appropriate. Th is patient will be placed in the appropriate reminder system. TECHNICAL DOCUMENTATION: FINDING NUMBER: (1) ASSESSMENT: (1) JOB ID: [id number] [employer]- All Rights Reserved Reading location - IP/workstation name: [email or web address]
== END ==
LOC: WI 09:40
PROVIDERS: ATTEND Physician Assistant
DX: Z12.31 Encounter for screening mammogram for malignant neoplasm of breast (principal)
CPT/HCPCS: 77063; 77067

== ENCOUNTER 2019-04-01 05:59 | Emergency (ER) | payer MEDICAID ==
[2019-04-01 06:16] VITALS: BP 153/77
[2019-04-01] MEDS ORDERED: CIPROFLOXACIN HCL/DEXAMETH OTIC DROP 7.5 ML AU ONE (07:29)
--- NOTE | 2019-04-01 07:31 | ER Document Report ---
HPI - HPI Time Seen by Provider: 04/01/19 07:18 Pain Level: 3 Context: Patient is a 48-year-old female who presents the emergency department with a chief complaint of bilateral ear pain. Patient states that she was diagnosed with vertigo and was given meclizine 2 weeks ago. Patient states that this morning she noticed that her ear was hurting and she was not able to open her jaw very well. Pain is mainly in the right ear. Patient admits to using Q- tips. Patient has a history of diabetes, hypertension, spinal cord compression, ADHD, chronic back pain. - EENT EENT: REPORTS: Ear Pain - right - REPRODUCTIVE Reproductive: DENIES: : Past Medical History - Social History Smoking Status: Current Every Day Smoker Chew tobacco use (# tins/day): No Frequency of alcohol use: None Drug Abuse: None Family History: Reviewed & Not Pertinent Patient has suicidal ideation: No Patient has homicidal ideation: No - Past Medical History Cardiac Medical History: Reports: Hx Hypertension Pulmonary Medical History: Reports: Hx Asthma Endocrine Medical History: Reports: Hx Diabetes Mellitus Type 1, Hx Diabetes Mellitus Type 2 Renal/ Medical History: Denies: Hx Peritoneal Dialysis Malignancy Medical History: Reports: Hx Brain Cancer - ASYTROCYTOMA, OPEN Bx & RESECTION PLANNED @ [facility] NEXT MONTH GI Medical History: Reports: Hx Gastroesophageal Reflux Disease, Hx Hiatal Hernia, Hx Pancreatitis Psychiatric Medical History: Reports: Hx Attention Deficit Hyperactivity Disorder, Hx Depression - depression and anxiety Past Surgical History: Reports: Hx Section - x3, Hx Dilation and Curettage, Hx Nose Surgery - Reconstruction - Immunizations Hx Diphtheria, Pertussis, Tetanus Vaccination: Yes Vertical Provider Document - INFECTION CONTROL TRAVEL OUTSIDE OF THE [place] IN LAST 30 DAYS: No Course - Re-evaluation Re-evalutation: 04/01/19 Physical examination shows otitis media and otitis externa. No tenderness noted to the mastoid process. I will start the patient on clindamycin and Ciprodex drops. She will follow-up with her primary care provider. Follow-up precautions were given. Verbal discharge instructions were given to the patient. They verbalized understanding. They are stable for discharge. - Vital Signs Vital signs: Temp Pulse Resp BP Pulse Ox 98.8 F 100 17 153/77 H 99 04/01/19 06:12 04/01/19 06:12 04/01/19 06:12 04/01/19 06:12 04/01/19 06:12 Discharge - Discharge Clinical Impression: Otitis media Qualifiers: Otitis media type: suppurative Chronicity: acute Laterality: bilateral Recurrence: not specified as recurrent Spontaneous tympanic membrane rupture: without spontaneous rupture Qualified Code(s): H66.003 - Acute suppurative otitis media without spontaneous rupture of ear drum, bilateral Otitis externa Qualifiers: Otitis externa type: noninfectious Noninfectious otitis externa type: unspecified noninfectious type Chronicity: acute Laterality: bilateral Qualified Code(s): H60.503 - Unspecified acute noninfective otitis externa, bilateral Disposition: HOME, SELF-CARE Instructions: Use of Ear Drops ([facility]), Otitis Externa ([facility]) Additional Instructions: You are seen today in the emergency department for ear pain. You have an inner and outer ear infection. You are being sent home with antibiotic/steroid eardrops. Place 4 drops to both ears twice a day for 7 days. You are also being started on oral antibiotics. Make sure you finish all your antibiotics as prescribed. Please follow-up with your primary care provider in the next 3 to 5 days. If you have worsening symptoms, please return to the emergency department. Prescriptions: Clindamycin HCl [Cleocin 150 mg Capsule] 300 mg PO Q6 7 Days #56 capsule Forms: Return to Work Referrals: JUANI RAVI PA-C [Primary Care Provider] - Follow up in 3-5 days
== END 2019-04-01 07:41 | disposition home or self-care (01) ==
LOC: ER 05:59
DX: H66.003 Acute suppurative otitis media without spontaneous rupture of ear drum, bilateral (principal); H60.503 Unspecified acute noninfective otitis externa, bilateral; H92.03 Otalgia, bilateral; F17.200 Nicotine dependence, unspecified, uncomplicated; J45.909 Unspecified asthma, uncomplicated; I10 Essential (primary) hypertension; F90.9 Attention-deficit hyperactivity disorder, unspecified type; E11.9 Type 2 diabetes mellitus without complications
CPT/HCPCS: 99282; J3490

== ENCOUNTER → 2019-04-16 | Outpatient (CLI) | payer MEDICAID | LOC: OD 15:13 | PROVIDERS: ATTEND Internal Medicine Endocrinology, Diabetes & Metabolism | DX: R74.8 Abnormal levels of other serum enzymes (principal) | CPT/HCPCS: 36415; 82150; 83690 ==

== ENCOUNTER 2019-05-30 21:35 | Emergency (ER) | payer MEDICAID ==
[2019-05-30 21:49] VITALS: BP 162/96
[2019-05-30] MEDS ORDERED: NORMAL SALINE 1000 ML 1,000 ML IV ONE (22:35)
--- NOTE | 2019-05-30 22:39 | ER Document Report ---
ED Medical Screen (RME) - General Chief Complaint: Abdominal Pain Stated Complaint: ABDOMINAL PAIN Time Seen by Provider: 05/30/19 22:28 Primary Care Provider: TAI COLLINS MD [Primary Care Provider] - Follow up as needed Information source: Patient Notes: Patient presents stating that she is in DKA. 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 Patient states that they were trying to get her admitted although she became anxious when she was waiting at the hospital and had to leave. Patient states that her blood sugar has been over 500 today and she does have some left side pain. Patient states she has chronic nausea. Patient also states that her triglycerides were over 10,000. Patient states that her triglycerides were transiently elevated after starting an antidepressant and when she was taken off that medication her triglycerides normalized. Patient states that this most recent increase occurred just over 3 month period. My I have greeted and performed a rapid initial assessment of this patient. A comprehensive ED assessment and evaluation of the patient, analysis of test results and completion of the medical decision making process will be conducted by additional ED providers. TRAVEL OUTSIDE OF THE [place] IN LAST 30 DAYS: No - Related Data Allergies/Adverse Reactions: amoxicillin [Amoxicillin] Allergy (Verified 04/01/19 07:17) cephalexin Allergy (Verified 04/01/19 07:17) fenofibrate [From Tricor] Allergy (Verified 04/01/19 07:17) metformin Adverse Reaction (Verified 04/01/19 07:17) sitagliptin [From Januvia] Adverse Reaction (Verified 04/01/19 07:17) Past Medical History - Past Medical History Cardiac Medical History: Reports: Hx Hypertension Pulmonary Medical History: Reports: Hx Asthma Endocrine Medical History: Reports: Hx Diabetes Mellitus Type 1, Hx Diabetes Mellitus Type 2 Renal/ Medical History: Denies: Hx Peritoneal Dialysis Malignancy Medical History: Reports: Hx Brain Cancer - ASYTROCYTOMA, OPEN Bx & RESECTION PLANNED @ [facility] NEXT MONTH GI Medical History: Reports: Hx Gastroesophageal Reflux Disease, Hx Hiatal Hernia, Hx Pancreatitis Psychiatric Medical History: Reports: Hx Attention Deficit Hyperactivity Disorder, Hx Depression - depression and anxiety Past Surgical History: Reports: Hx Section - x3, Hx Dilation and Curettage, Hx Nose Surgery - Reconstruction - Immunizations Hx Diphtheria, Pertussis, Tetanus Vaccination: Yes Physical Exam - Vital signs Vitals: Temp Pulse Resp BP Pulse Ox 98.9 F 112 H 16 162/96 H 96 05/30/19 21:48 05/30/19 21:48 05/30/19 21:48 05/30/19 21:48 05/30/19 21:48 - General General appearance: Alert, Anxious Notes: Left lateral side tenderness Course - Vital Signs Vital signs: Temp Pulse Resp BP Pulse Ox 98.9 F 112 H 16 162/96 H 96 05/30/19 21:48 05/30/19 21:48 05/30/19 21:48 05/30/19 21:48 05/30/19 21:48 Doctor's Discharge - Discharge Referrals: TAI COLLINS MD [Primary Care Provider] - Follow up as needed
[2019-05-30 23:05] LABS: APPEARANCE,URINE CLEAR; BILIRUBIN,URINE NEGATIVE (NEGATIVE); COLOR,URINE STRAW; GLUCOSE, URINE >=500 mg/dL (NEGATIVE); KETONES,URINE TRACE mg/dL (NEGATIVE); LEUKOCYTE ESTERASE,URINE NEGATIVE (NEGATIVE); NITRITE,URINE NEGATIVE (NEGATIVE); PROTEIN,URINE NEGATIVE (NEGATIVE); URINE SPECIFIC GRAVITY 1.032; UROBILINOGEN,URINE NEGATIVE mg/dL (<2.0)
[2019-05-30 23:15] LABS: ABSOLUTE BASOPHILS # (AUTO) 0.1 10^3/uL (0.0-0.2); ABSOLUTE EOSINOPHILS # (AUTO) 0.2 10^3/uL (0.0-0.6); ABSOLUTE LYMPHOCYTES (AUTO) 2.9 10^3/uL (0.5-4.7); ABSOLUTE MONOCYTES (AUTO) 0.4 10^3/uL (0.1-1.4); ABSOLUTE NEUT (AUTO) 7.2 10^3/uL (1.7-8.2); BASOPHILS % (AUTO) 0.6 % (0-2); EOSINOPHILS % (AUTO) 1.9 % (0-6); HEMATOCRIT 39.4 % (36.0-47.0); LYMPHOCYTES % (AUTO) 27.1 % (13-45); MEAN CORPUSCULAR VOLUME 82 fl (80-97); MONOCYTES % (AUTO) 3.5 % (3-13); PLATELET COUNT 321 10^3/uL (150-450); RED BLOOD COUNT 4.84 10^6/uL (3.72-5.28); RED CELL DISTRIBUTION WIDTH 15.3 % (11.5-14.0); SEGMENTED NEUTROPHILS % (AUTO) 66.9 % (42-78); TOTAL CELLS COUNTED % (AUTO) 100 %; WHITE BLOOD COUNT 10.8 10^3/uL (4.0-10.5)
[2019-05-30 23:34] LABS: ALBUMIN 3.8 g/dL (3.5-5.0); ALKALINE PHOSPHATASE 144 U/L (38-126); ANION GAP 18 (5-19); ASPARTATE AMINO TRANSFERASE 29 U/L (14-36); BILIRUBIN,DIRECT 0.4 mg/dL (0.0-0.4); BILIRUBIN,TOTAL 0.6 mg/dL (0.2-1.3); BLOOD UREA NITROGEN 10 mg/dL (7-20); CALCIUM 8.8 mg/dL (8.4-10.2); CARBON DIOXIDE 16 mmol/L (22-30); CHLORIDE 99 mmol/L (98-107); GLUCOSE 340 mg/dL (75-110); TOTAL PROTEIN 7.3 g/dL (6.3-8.2)
[2019-05-30 23:37] LABS: HEMOGLOBIN 13.2 g/dL (12.0-15.5); MEAN CORPUSCULAR HEMOGLOBIN 27.3 pg (27.0-33.4)
[2019-05-30 23:38] LABS: MEAN CORPUSCULAR HGB CONC 33.6 g/dL (32.0-36.0)
== END 2019-05-31 00:02 | disposition left against medical advice (07) ==
LOC: ER 21:35
DX: R10.9 Unspecified abdominal pain (principal); I10 Essential (primary) hypertension; J45.909 Unspecified asthma, uncomplicated; E11.9 Type 2 diabetes mellitus without complications; C71.9 Malignant neoplasm of brain, unspecified; Z88.0 Allergy status to penicillin
CPT/HCPCS: 36415; 80053; 81001; 83690; 85025; 99281

== ENCOUNTER 2019-06-01 03:08 | Emergency (ER) | payer MEDICAID ==
[2019-06-01 04:35] LABS: VENOUS BLOOD BASE EXCESS 0.8 mmol/L; VENOUS BLOOD PCO2 43.6 mmHg (35-63); VENOUS BLOOD PH 7.39 (7.30-7.42)
[2019-06-01 04:44] LABS: ABSOLUTE BASOPHILS # (AUTO) 0.2 10^3/uL (0.0-0.2); ABSOLUTE EOSINOPHILS # (AUTO) 0.2 10^3/uL (0.0-0.6); ABSOLUTE LYMPHOCYTES (AUTO) 2.4 10^3/uL (0.5-4.7); ABSOLUTE MONOCYTES (AUTO) 0.4 10^3/uL (0.1-1.4); ABSOLUTE NEUT (AUTO) 6.4 10^3/uL (1.7-8.2); BASOPHILS % (AUTO) 1.8 % (0-2); EOSINOPHILS % (AUTO) 1.9 % (0-6); HEMATOCRIT 40.3 % (36.0-47.0); LYMPHOCYTES % (AUTO) 24.8 % (13-45); MEAN CORPUSCULAR VOLUME 81 fl (80-97); MONOCYTES % (AUTO) 4.7 % (3-13); PLATELET COUNT 283 10^3/uL (150-450); RED BLOOD COUNT 4.99 10^6/uL (3.72-5.28); RED CELL DISTRIBUTION WIDTH 14.6 % (11.5-14.0); SEGMENTED NEUTROPHILS % (AUTO) 66.8 % (42-78); TOTAL CELLS COUNTED % (AUTO) 100 %; WHITE BLOOD COUNT 9.5 10^3/uL (4.0-10.5)
[2019-06-01 04:50] LABS: ALBUMIN 3.7 g/dL (3.5-5.0); ALKALINE PHOSPHATASE 153 U/L (38-126); ANION GAP 14 (5-19); ASPARTATE AMINO TRANSFERASE 23 U/L (14-36); BILIRUBIN,DIRECT 0.3 mg/dL (0.0-0.4); BILIRUBIN,TOTAL 0.5 mg/dL (0.2-1.3); BLOOD UREA NITROGEN 8 mg/dL (7-20); CALCIUM 8.8 mg/dL (8.4-10.2); CARBON DIOXIDE 20 mmol/L (22-30); CHLORIDE 101 mmol/L (98-107); GLUCOSE 351 mg/dL (75-110); POTASSIUM 4.1 mmol/L (3.6-5.0)
[2019-06-01 05:27] LABS: HEMOGLOBIN 13.5 g/dL (12.0-15.5); MEAN CORPUSCULAR HEMOGLOBIN 27.1 pg (27.0-33.4)
[2019-06-01 05:28] LABS: MEAN CORPUSCULAR HGB CONC 33.6 g/dL (32.0-36.0)
[2019-06-01 07:37] LABS: APPEARANCE,URINE CLEAR; BILIRUBIN,URINE NEGATIVE (NEGATIVE); COLOR,URINE STRAW; GLUCOSE, URINE >=500 mg/dL (NEGATIVE); KETONES,URINE TRACE mg/dL (NEGATIVE); LEUKOCYTE ESTERASE,URINE NEGATIVE (NEGATIVE); NITRITE,URINE NEGATIVE (NEGATIVE); PROTEIN,URINE NEGATIVE (NEGATIVE); URINE SPECIFIC GRAVITY 1.025; UROBILINOGEN,URINE NEGATIVE mg/dL (<2.0)
[2019-06-01] MEDS ORDERED: KETOROLAC TROMETHAMINE INJ/PF 30 MG/1 ML SDV IV ONE (10:21)
[2019-06-01] MEDS ORDERED: NORMAL SALINE 1000 ML 1,000 ML IV ONE (11:20)
[2019-06-01 11:41] LABS: ARTERIAL BLOOD BASE EXCESS -2.4 mmol/L; ARTERIAL BLOOD H2CO3 1.27 mmol/L (1.05-1.35); ARTERIAL BLOOD O2 SATURATION 93.4 % (94-98); ARTERIAL BLOOD PCO2 42.3 mmHg (35-45); ARTERIAL BLOOD PH 7.35 (7.35-7.45); ARTERIAL BLOOD PO2 70.3 mmHg (80-100); ARTERIAL BLOOD TOTAL CO2 24.3 mmol/L (21-25)
[2019-06-01 11:43] LABS: ARTERIAL BLOOD FIO2 ROOM AIR
[2019-06-01 12:35] VITALS: BP 176/76
--- NOTE | 2019-06-01 12:43 | ER Document Report ---
Entered by VLADISLAV MCDUFFIE SCRIBE 06/01/19 1238 Acting as scribe for:CARINE SON IV, MD ED GI/ - General Chief Complaint: High Blood Sugar Stated Complaint: ABDOMINAL PAIN Time Seen by Provider: 06/01/19 09:52 Primary Care Provider: TAI COLLINS MD [Primary Care Provider] - Follow up tomorrow Information source: Patient Notes: This 48-year-old female patient with type 1 diabetes presents to the emergency department today with complaints of recent abnormal outpatient labs along with chronic upper abdominal pain. Patient states that she had outpatient labs drawn at [facility] 3 days ago, where she is followed by endocrinology, and was told that her triglycerides were "over 10,000" and her fingerstick glucose level was over 400. Patient does provide a viewing of her "patient portal" from [facility] which mentions that the blood that these labs were ran off of appeared to be hemolyzed so results are not necessarily reliable. Patient states that she was called and was told that she should go to the emergency department at [facility] to be treated for possible DKA. Patient mentions that she sat in the waiting room at [facility] for 2 hours and then left because she got tired of waiting. Patient states that she drove back home here to [place] and came to the ER here. Patient states she waited here for a few hours and again left because she got tired of waiting. Patient reports she came back to this emergency department the next day and there was "no parking in the parking lot so she turned around and drove home". Patient states that today she "decided just to come very early in the morning" stating that her doctor seemed to be "very concerned about her labs". Patient was asked that if her doctor seemed so concerned about her labs, why did she r efuse to wait in the ER and prolong this visit for multiple days, to which she has no real answer. Upon reviewing the records that we have here at [facility], the patient has had poorly controlled diabetes essentially her entire life. The vast majority of recorded BGL's that we have here on record are over 300. Patient is fixated upon this triglyceride number of greater than 10,000 despite multiple attempts to reassure her that an elevated triglyceride level is not something that is an imminent danger to her health today. Patient was also advised on multiple occasions that the blood that this was ran on appeared to be hemolyzed so results are not reliable. Eventually the patient does mention that she has had upper abdominal pain for years which she now is currently having. Patient states that her doctor at [facility] wanted to make sure she "did not have pancreatitis". Patient is pleasant, attempts to answer all questions, and is willing to accept feedback and recommendations however she is not a very helpful historian. TRAVEL OUTSIDE OF THE [place] IN LAST 30 DAYS: No - Related Data Allergies/Adverse Reactions: amoxicillin [Amoxicillin] Allergy (Verified 04/01/19 07:17) cephalexin Allergy (Verified 04/01/19 07:17) fenofibrate [From Tricor] Allergy (Verified 04/01/19 07:17) metformin Adverse Reaction (Verified 04/01/19 07:17) sitagliptin [From Januvia] Adverse Reaction (Verified 04/01/19 07:17) Home Medications: metoprolol, humalog insulin, lantus insulin, cymbalta bid, losaratan 50 mg qday, clonidine 0.3 mg qhs, vyvanse 70 mg qday, neurontin bid prn, albuterol inhaler, motrin prn, zofran prn diazepam prn, Past Medical History - General Information source: Patient - Social History Smoking Status: Current Every Day Smoker Cigarette use (# per day): Yes Lives with: Family Family History: Reviewed & Not Pertinent Patient has suicidal ideation: No Patient has homicidal ideation: No - Past Medical History Cardiac Medical History: Reports: Hx Hypertension Pulmonary Medical History: Reports: Hx Asthma Endocrine Medical History: Reports: Hx Diabetes Mellitus Type 1, Hx Diabetes Mellitus Type 2 Renal/ Medical History: Denies: Hx Peritoneal Dialysis Malignancy Medical History: Reports: Hx Brain Cancer - ASYTROCYTOMA, OPEN Bx & RESECTION PLANNED @ [facility] NEXT MONTH GI Medical History: Reports: Hx Gastroesophageal Reflux Disease, Hx Hiatal Hernia, Hx Pancreatitis Psychiatric Medical History: Reports: Hx Attention Deficit Hyperactivity Disorder, Hx Depression - depression and anxiety Past Surgical History: Reports: Hx Section - x3, Hx Dilation and Curettage, Hx Nose Surgery - Reconstruction - Immunizations Hx Diphtheria, Pertussis, Tetanus Vaccination: Yes Review of Systems - Review of Systems Constitutional: See HPI, Other - Abnormal labs EENT: No symptoms reported Cardiovascular: No symptoms reported Respiratory: No symptoms reported Gastrointestinal: See HPI, Abdominal pain Genitourinary: No symptoms reported Female Genitourinary: No symptoms reported Musculoskeletal: No symptoms reported Skin: No symptoms reported Hematologic/Lymphatic: No symptoms reported Neurological/Psychological: No symptoms reported -: Yes All other systems reviewed and negative Physical Exam - Vital signs Vitals: Temp Pulse Resp BP Pulse Ox 99.0 F 103 H 18 185/106 H 96 06/01/19 03:15 06/01/19 03:15 06/01/19 03:15 06/01/19 03:15 06/01/19 03:15 - Notes Notes: Physical Exam: General: Alert, appears well. HEENT: Normocephalic. Atraumatic. PERRL. Extraocular movements intact. Oropharynx clear. Neck: Supple. Non-tender. Respiratory: No respiratory distress. Clear and equal breath sounds bilaterally. Cardiovascular: Regular rate and rhythm. Abdominal: Minimal upper abdominal tenderness palpation. Morbidly obese. No distension. Normal Bowel Sounds. Back: No gross abnormalities. Extremities: Moves all four extremities. Upper extremities: Normal inspection. Normal ROM. Lower extremities: Normal inspection. No edema. Normal ROM. Neurological: Normal cognition. AAOx4. Normal speech. Psychological: Normal affect. Normal Mood. Skin: Warm. Dry. Normal color. Course - Re-evaluation Re-evalutation: 06/01/19 12:39 Fingerstick blood sugar at 1224 hrs. is 278. Patient states her abdominal pain is improved after Toradol. Results of ED MSE discussed with patient. When asked if everything about the patient's visit was explained in a manner in which the patient understood patient answered in the affirmative. Emergency signs and symptoms, reasons to return to the emergency department discussed with the patient. - Vital Signs Vital signs: Temp Pulse Resp BP Pulse Ox 98.3 F 83 17 176/76 H 97 06/01/19 12:33 06/01/19 12:33 06/01/19 12:33 06/01/19 12:33 06/01/19 12:33 - Laboratory Result Diagrams: 06/01/19 04:01 06/01/19 04:01 Laboratory results interpreted by me: 06/01/19 06/01/19 06/01/19 04:01 04:01 07:20 RDW 14.6 H ABG pO2 ABG O2 Saturation Sodium 134.5 L Carbon Dioxide 20 L Creatinine 0.40 L Glucose 351 H POC Glucose Alkaline Phosphatase 153 H Urine Glucose (UA) >=500 H Urine Ketones TRACE H Urine Blood SMALL H 06/01/19 06/01/19 06/01/19 11:14 11:18 12:21 RDW ABG pO2 70.3 L ABG O2 Saturation 93.4 L Sodium Carbon Dioxide Creatinine Glucose POC Glucose 300 H 278 H Alkaline Phosphatase Urine Glucose (UA) Urine Ketones Urine Blood 06/01/19 12:40 All laboratory results reviewed by this MD. Discharge - Discharge Clinical Impression: Hyperglycemia due to type 1 diabetes mellitus Condition: Good Disposition: HOME, SELF-CARE Additional Instructions: Return to the Emergency Department without delay if any worse. HOME CARE INSTRUCTIONS & INFORMATION: Thank you for choosing us for your medical needs. We hope you're satisfied with the care you received. After you leave, you must properly care for your problem and, at the same time, observe its progress. Any condition can change. Some illnesses can change rapidly over hours or days. If your condition worsens, return to the Emergency Department or see your physician promptly. ABOUT YOUR X-RAYS AND EKG'S: If you had an EKG or X-rays taken, they have been read by the Emergency Physician. The X-rays and EKG's will also be read by a Radiologist or Lubrication Worker within 24 hours. If discrepancies are noted, you wi ll be notified by telephone. Please be certain the ED has a correct telephone number & address where you can be reached. Also, realize that some fractures or abnormalities do not show up on initial X-rays. If your symptoms continue, see your physician. ABOUT YOUR LABORATORY TEST: If you had laboratory tests, the results have been reviewed by the Emergency Physician. Some test results (for example cultures) may not be available for several days. You will be contacted if any test result shows you need additional treatment. Please be certain the ED has a correct telephone number and address where you can be reached. ABOUT YOUR MEDICATIONS: You will receive instructions on how to take your medicine on the prescription label you receive. Additional information may be provided by the Pharmacy. If you have questions afterwards, call the ED for clarification or further instructions. Some prescribed medications may cause drowsiness. Do not perform tasks such as driving a car or operating machinery without consulting your Pharmacist. If you feel you need a refill of pain medication, your condition will need re-evaluation. Please do not call for a refill of any medication. ABOUT YOUR SIGNATURE: Signature of this document acknowledges to followin. Understanding that you received emergency treatment and that you may be released before al medical problems are known or treated. Please be certain the ED has a correct phone number & address where you can be reached. 2. Acknowledgement that you will arrange for follow-up care as recommended. 3. Authorization for the Emergency Physician to provide information to your follow-up Physician in order to maximize your care. AT ANY TIME, IF YOUR SYMPTOMS CHANGE SIGNIFICANTLY OR WORSEN OR YOU DEVELOP NEW SYMPTOMS, RETURN TO THE EMERGENCY DEPARTMENT IMMEDIATELY FOR RE-EVALUATION. OUR GOAL IS TO PROVIDE EXCELLENT MEDICAL CARE! WE HOPE THAT WE HAVE MET YOUR EXPECTATIONS DURING YOUR EMERGENCY DEPARTMENT VISIT AND THAT YOU FEEL YOU HAVE RECEIVED EXCELLENT CARE! Referrals: TAI COLLINS MD [Primary Care Provider] - Follow up tomorrow I personally performed the services described in the documentation, reviewed and edited the documentation which was dictated to the scribe in my presence, and it accurately records my words and actions.
== END 2019-06-01 13:02 | disposition home or self-care (01) ==
LOC: ER 03:08
DX: E10.65 Type 1 diabetes mellitus with hyperglycemia (principal); G89.29 Other chronic pain; R10.10 Upper abdominal pain, unspecified; I10 Essential (primary) hypertension; C71.9 Malignant neoplasm of brain, unspecified; F17.210 Nicotine dependence, cigarettes, uncomplicated; Z79.4 Long term (current) use of insulin
CPT/HCPCS: 99284; 96361; 96374; 36415; 82962; 82803 ×2; 83605; 83690; 85025; 80053; 81001; J1885; J7030

== ENCOUNTER 2019-06-02 14:32 | Inpatient (IN) | payer MEDICAID ==
--- NOTE | 2019-06-02 15:30 | ER Document Report ---
ED Medical Screen (RME) - General Chief Complaint: Abdominal Pain Stated Complaint: ABDOMINAL PAIN Time Seen by Provider: 06/02/19 15:23 Primary Care Provider: TAI COLLINS MD [Primary Care Provider] - Follow up as needed Notes: Patient is a 48-year-old female with a history of type 2 diabetes, asthma, depression anxiety who presents to the emergency department with a chief complaint of abdominal pain. Patient reports she was seen here yesterday for abdominal pain. Patient reports she has had left upper quadrant pain that radiates into the epigastric area starting yesterday. Patient reports now she has had generalized abdominal pain. Patient reports chills and night sweats. Patient reports nausea. TRAVEL OUTSIDE OF THE [place] IN LAST 30 DAYS: No - Related Data Allergies/Adverse Reactions: amoxicillin [Amoxicillin] Allergy (Verified 06/02/19 15:22) cephalexin Allergy (Verified 06/02/19 15:22) fenofibrate [From Tricor] Allergy (Verified 06/02/19 15:22) metformin Adverse Reaction (Verified 06/02/19 15:22) sitagliptin [From Januvia] Adverse Reaction (Verified 06/02/19 15:22) Past Medical History - Social History Frequency of alcohol use: None Drug Abuse: None - Past Medical History Cardiac Medical History: Reports: Hx Hypertension Pulmonary Medical History: Reports: Hx Asthma Endocrine Medical History: Reports: Hx Diabetes Mellitus Type 1, Hx Diabetes Mellitus Type 2 Renal/ Medical History: Denies: Hx Peritoneal Dialysis Malignancy Medical History: Reports: Hx Brain Cancer - ASYTROCYTOMA, OPEN Bx & RESECTION PLANNED @ [facility] NEXT MONTH GI Medical History: Reports: Hx Gastroesophageal Reflux Disease, Hx Hiatal Hernia, Hx Pancreatitis Psychiatric Medical History: Reports: Hx Attention Deficit Hyperactivity Disorder, Hx Depression - depression and anxiety Past Surgical History: Reports: Hx Section - x3, Hx Dilation and Curettage, Hx Nose Surgery - Reconstruction - Immunizations Hx Diphtheria, Pertussis, Tetanus Vaccination: Yes Physical Exam - Abdominal Inspection: Normal Bowel sounds: Normal Tenderness: Tender - Generalized abdominal tenderness throughout. Organomegaly: No organomegaly Course - Re-evaluation Re-evalutation: 06/02/19 15:30 I have greeted and performed a rapid initial assessment of this patient. A comprehensive ED assessment and evaluation of the patient, analysis of test results and completion of the medical decision making process will be conducted by additional ED providers. Doctor's Discharge - Discharge Referrals: TAI COLLINS MD [Primary Care Provider] - Follow up as needed
[2019-06-02] MEDS ORDERED: ONDANSETRON 4 MG TAB.RAPDIS PO ONE (15:31)
[2019-06-02] MEDS ORDERED: PROMETHAZINE HCL 25 MG TABLET PO ONE (15:35)
[2019-06-02 15:57] LABS: ABSOLUTE BASOPHILS # (AUTO) 0.1 10^3/uL (0.0-0.2); ABSOLUTE EOSINOPHILS # (AUTO) 0.1 10^3/uL (0.0-0.6); ABSOLUTE MONOCYTES (AUTO) 0.4 10^3/uL (0.1-1.4); ABSOLUTE NEUT (AUTO) 10.3 10^3/uL (1.7-8.2); BASOPHILS % (AUTO) 0.6 % (0-2); EOSINOPHILS % (AUTO) 0.6 % (0-6); HEMATOCRIT 39.7 % (36.0-47.0); LYMPHOCYTES % (AUTO) 8.8 % (13-45); MEAN CORPUSCULAR VOLUME 81 fl (80-97); MONOCYTES % (AUTO) 3.6 % (3-13); PLATELET COUNT 253 10^3/uL (150-450); RED BLOOD COUNT 4.88 10^6/uL (3.72-5.28); RED CELL DISTRIBUTION WIDTH 15.4 % (11.5-14.0); SEGMENTED NEUTROPHILS % (AUTO) 86.4 % (42-78); TOTAL CELLS COUNTED % (AUTO) 100 %; WHITE BLOOD COUNT 11.9 10^3/uL (4.0-10.5)
[2019-06-02 16:11] LABS: ALBUMIN 4.2 g/dL (3.5-5.0); ALKALINE PHOSPHATASE 106 U/L (38-126); ANION GAP 13 (5-19); ASPARTATE AMINO TRANSFERASE 46 U/L (14-36); BILIRUBIN,DIRECT 0.8 mg/dL (0.0-0.4); BILIRUBIN,TOTAL 1.4 mg/dL (0.2-1.3); BLOOD UREA NITROGEN 2 mg/dL (7-20); CALCIUM 8.8 mg/dL (8.4-10.2); CARBON DIOXIDE 21 mmol/L (22-30); CHLORIDE 99 mmol/L (98-107); GLUCOSE 219 mg/dL (75-110); POTASSIUM 4.7 mmol/L (3.6-5.0); TOTAL PROTEIN 8.1 g/dL (6.3-8.2)
[2019-06-02] MEDS ORDERED: NORMAL SALINE 1000 ML 1,000 ML IV ONE ×2 (16:12→18:37)
[2019-06-02 16:18] LABS: HEMOGLOBIN 13.3 g/dL (12.0-15.5); MEAN CORPUSCULAR HEMOGLOBIN 27.3 pg (27.0-33.4)
[2019-06-02 16:19] LABS: MEAN CORPUSCULAR HGB CONC 33.5 g/dL (32.0-36.0)
--- NOTE | 2019-06-02 17:01 | ER Document Report ---
ED General - General Chief Complaint: Abdominal Pain Stated Complaint: ABDOMINAL PAIN Time Seen by Provider: 06/02/19 15:23 Primary Care Provider: TAI COLLINS MD [NO LOCAL MD] - Follow up as needed TRAVEL OUTSIDE OF THE [place] IN LAST 30 DAYS: No - HPI Notes: Patient is a 48-year-old female with multiple medical issues who presents to the emergency department for evaluation of abdominal pain. She was seen at [place] last week. P[facility] In told her she was "probably in DKA." She did not want to wait there any longer, as she states that sitting exacerbates her chronic pain. She left here, came back to [facility]. She was not seen that evening because she waited what she deemed "too long." She was seen yesterday, DKA was ruled out, the patient was sent home. At that point she states she developed epigastric and left upper quadrant pain. It is since progressed to generalized abdominal pain. The patient has a history of chronic abdominal pain, she states this is different. She has had some nausea but no emesis. Abnormal bowel movements, but she denies misha diarrhea. She denies any melena or hematochezia. Normal urinary symptoms. She states she has been taking her medications as prescribed. - Related Data Allergies/Adverse Reactions: amoxicillin [Amoxicillin] Allergy (Verified 06/02/19 15:22) cephalexin Allergy (Verified 06/02/19 15:22) fenofibrate [From Tricor] Allergy (Verified 06/02/19 15:22) metformin Adverse Reaction (Verified 06/02/19 15:22) sitagliptin [From Januvia] Adverse Reaction (Verified 06/02/19 15:22) Home Medications: List reviewed, please see note Past Medical History - General Information source: Patient - Social History Smoking Status: Current Every Day Smoker Frequency of alcohol use: None Drug Abuse: None Family History: Reviewed & Not Pertinent Patient has suicidal ideation: No Patient has homicidal ideation: No - Past Medical History Cardiac Medical History: Reports: Hx Hypertension Pulmonary Medical History: Reports: Hx Asthma Endocrine Medical History: Reports: Hx Diabetes Mellitus Type 1, Hx Diabetes Mellitus Type 2 Renal/ Medical History: Denies: Hx Peritoneal Dialysis Malignancy Medical History: Reports: Hx Brain Cancer - ASYTROCYTOMA, OPEN Bx & RESECTION PLANNED @ [facility] NEXT MONTH GI Medical History: Reports: Hx Gastroesophageal Reflux Disease, Hx Hiatal Hernia, Hx Pancreatitis Psychiatric Medical History: Reports: Hx Attention Deficit Hyperactivity Disorder, Hx Depression - depression and anxiety Past Surgical History: Reports: Hx Section - x3, Hx Dilation and C urettage, Hx Nose Surgery - Reconstruction - Immunizations Hx Diphtheria, Pertussis, Tetanus Vaccination: Yes Review of Systems - Review of Systems Constitutional: No symptoms reported EENT: No symptoms reported Cardiovascular: No symptoms reported Respiratory: No symptoms reported Gastrointestinal: See HPI Genitourinary: No symptoms reported Musculoskeletal: No symptoms reported Skin: No symptoms reported Neurological/Psychological: No symptoms reported Physical Exam - Vital signs Vitals: Temp Pulse Resp BP Pulse Ox 98.5 F 120 H 18 181/101 H 100 06/02/19 14:50 06/02/19 14:50 06/02/19 14:50 06/02/19 14:50 06/02/19 14:50 - Notes Notes: This is an obese 48-year-old female who appears her stated age in a mild amount of distress. Vital signs reviewed, please refer to chart. Head is normocephalic, atraumatic. Pupils equal round, reactive to light. Neck is supple without meningismus. Heart is regular rate and rhythm. Lungs are clear to auscultation bilaterally. Abdomen is obese, globally tender with voluntary guarding but no rebound, normoactive bowel sounds throughout. Extremities without cyanosis, clubbing. Posterior calves are nontender. Peripheral pulses are equal. Skin is warm and dry. Course - Re-evaluation Re-evalutation: 06/02/19 17:00 There is a 48-year-old female presents emergency department for evaluation of abdominal pain. Laboratory investigations were obtained. She was given IV fluids. She continues to be mildly tachycardic. Her exam is significantly tender. Decision was made to proceed with CT scan of the abdomen pelvis with IV contrast. We will continue to monitor. 06/02/19 21:03 I had spoken with Dr. Barbosa in regards to this patient. He was concerned that the patient in fact has gallstone pancreatitis. He asked that a right upper q uadrant ultrasound be ordered. This is ordered and pending at this time. 06/02/19 21:41 Ultrasound unremarkable for any cholecystitis or signs of cholelithiasis/obstruction. Findings were communicated to Dr. Barbosa, who will accept the patient for observation. - Vital Signs Vital signs: Temp Pulse Resp BP Pulse Ox 98.8 F 120 H 26 H 174/94 H 95 06/02/19 18:23 06/02/19 14:50 06/02/19 19:35 06/02/19 19:35 06/02/19 19:35 - Laboratory Result Diagrams: 06/02/19 15:40 06/02/19 15:40 Laboratory results interpreted by me: 06/02/19 06/02/19 15:40 15:40 WBC 11.9 H RDW 15.4 H Lymph % (Auto) 8.8 L Absolute Neuts (auto) 10.3 H Seg Neutrophils % 86.4 H Sodium 133.0 L Carbon Dioxide 21 L BUN 2 L Creatinine 0.40 L Glucose 219 H Total Bilirubin 1.4 H Direct Bilirubin 0.8 H AST 46 H Lipase 446.3 H - Diagnostic Test Radiology reviewed: Reports reviewed Radiology results interpreted by me: 06/02/19 21:41 Abdomen/Pelvis CT 06/02/19 16:43 IMPRESSION: 1. FINDINGS CONSISTENT WITH ACUTE PANCREATITIS. NO ABNORMAL FLUID COLLECTIONS. 2. FATTY INFILTRATION OF THE LIVER. 3. NO OTHER SIGNIFICANT OR ACUTE FINDING IN THE ABDOMEN OR PELVIS ON CT SCAN WITH IV CONTRAST. Abdomen Ultrasound 06/02/19 19:34 IMPRESSION: 1. Slightly enlarged pancreatic head as seen on CT. No peripancreatic fluid collection, although much of the pancreas is not visualized due to artifact. 2. No gallstones or sonographic evidence for acute cholecystitis 3. No biliary ductal distention Discharge - Discharge Clinical Impression: Acute pancreatitis Qualifiers: Pancreatitis type: unspecified pancreatitis type Acute pancreatitis complication: unspecified Qualified Code(s): K85.90 - Acute pancreatitis without necrosis or infection, unspecified Condition: Stable Disposition: HOME, SELF-CARE Admitting Provider: [facility]am[facility] (Hospitalist) Unit Admitted: Telemetry Referrals: TAI COLLINS MD [NO LOCAL MD] - Follow up as needed
[2019-06-02] MEDS ORDERED: MORPHINE SULFATE 10 MG/ML INJ IV ONE (17:55)
[2019-06-02] MEDS ORDERED: ONDANSETRON HCL INJ/PF 4 MG/2 ML SDV IV ONE (17:56)
--- NOTE | 2019-06-02 18:06 | RADIOLOGY REPORT (SQ) ---
EXAM DESCRIPTION: CT ABD/PELVIS WITH IV ONLY COMPLETED DATE/TIME: 06/02/2019 5:40 pm REASON FOR STUDY: epigastric abdominal pain COMPARISON: 07/16/2016. TECHNIQUE: CT scan of the abdomen and pelvis performed using helical scanning technique with dynamic intravenous contrast injection. No oral contrast. Images reviewed with lung, soft tissue, and bone windows. Reconstructed coronal and sagittal MPR images reviewed. Delayed images for evaluation of the urinary system also acquired. All images stored on PACS. All CT scanners at this facility use dose modulation, iterative reconstruction, and/or weight based d osing when appropriate to reduce radiation dose to as low as reasonably achievable (ALARA). [facility]: Dose Right [facility]: CareDose [facility]: Dose Right [facility]: Teradose 4D [facility]: Portapure CONTRAST TYPE AND DOSE: contrast/concentration: Isovue 350.00 mg/ml; Total Contrast Delivered: 100.0 ml; Total Saline Delivered: 72.0 ml RENAL FUNCTION: BUN 2 creatinine 0.4. RADIATION DOSE: CT Rad equipment meets quality standard of care and radiation dose reduction techniq ues were employed. CTDIvol: 20.8 - 21.1 mGy. DLP: 2274 mGy-cm.. LIMITATIONS: None. FINDINGS: LOWER CHEST: No significant findings. No nodules or infiltrates. LIVER: Normal size. Diffuse fatty infiltration. No masses. No dilated ducts. SPLEEN: Normal size. No focal lesions. PANCREAS: Fullness in the pancreatic head. Inflammatory changes in the peripancreatic tissues. No a bnormal fluid collection. Pancreatic duct not dilated. GALLBLADDER: No identified stones by CT criteria. No inflammatory changes to suggest cholecystitis. ADRENAL GLANDS: No significant masses or asymmetry. RIGHT KIDNEY AND URETER: No solid masses. No significant calcifications. No hydronephrosis or hyd roureter. LEFT KIDNEY AND URETER: No solid masses. No significant calcifications. No hydronephrosis or hydr oureter. AORTA AND VESSELS: No aneurysm. No dissection. Renal arteries, SMA, celiac without stenosis. RETROPERITONEUM: No retroperitoneal adenopathy, hemorrhage or masses. BOWEL AND PERITONEAL CAVITY: No masses or inflammatory changes. No free fluid or peritoneal masses. APPENDIX: Normal. PELVIS: No mass. No free fluid. Normal bladder. ABDOMINAL WALL: No masses. No hernias. BONES: No significant or acute findings. OTHER: No other significant finding. IMPRESSION: 1. FINDINGS CONSISTENT WITH ACUTE PANCREATITIS. NO ABNORMAL FLUID COLLECTIONS. 2. FATTY INFILTRATION OF THE LIVER. 3. NO OTHER SIGNIFICANT OR ACUTE FINDING IN THE ABDOMEN OR PELVIS ON CT SCAN WITH IV CONTRAST. TECHNICAL DOCUMENTATION: JOB ID: [id number] Quality ID # [id number]: Final reports with documentation of one or more dose reduction techniques (e.g., Au tomated exposure control, adjustment of the mA and/or kV according to patient size, use of iterative reconstruction technique) 2010 [employer]- All Rights Reserved Reading location - IP/workstation name: [email or web address]
--- NOTE | 2019-06-02 21:18 | RADIOLOGY REPORT (SQ) ---
EXAM DESCRIPTION: [facility]Lex: US ABDOMEN LIMITED CLINICAL HISTORY: 48 years Female; RUQ eval - pancreatitis TECHNIQUE: Right upper quadrant ultrasound was performed. COMPARISON: CT 06/02/2019 FINDINGS: Pancreas: Head is slightly prominent, as seen on the CT. Remainder the pancreas is not visualized due to artifact. Liver: 19 cm long, slightly echogenic. Suboptimally visualized. Portal venous flow is hepatopedal, normal. Gallbladder: normal with no gallstones or sonographic evidence for acute cholecystitis. No pericholecystic fluid. No sonographic Escobedo's sign. Common bile duct: 4 mm. Right kidney: 13.9 x 6.4 x 6.2 cm. No hydronephrosis. IMPRESSION: 1. Slightly enlarged pancreatic head as seen on CT. No peripancreatic fluid collection, although much of the pancreas is not visualized due to artifact. 2. No gallstones or sonographic evidence for acute cholecystitis 3. No biliary ductal distention
[2019-06-02] MEDS ORDERED: MAGNESIUM HYDROXIDE SUSP 30 ML UDCUP PO PRN (21:41)
[2019-06-02] MEDS ORDERED: MORPHINE SULFATE 10 MG/ML INJ IV PRN (21:41)
[2019-06-02] MEDS ORDERED: IPRATROPIUM/ALBUTEROL 0.5-2.5 MG/3 ML AMPUL NEB PRN (21:41)
[2019-06-02] MEDS ORDERED: HYDRALAZINE HCL INJ/PF 20 MG/1 ML SDV IV PRN (21:41)
[2019-06-02] MEDS ORDERED: MAG HYDROX/AL HYDROX/SIMETH SUSP 30 ML UDCUP PO PRN (21:41)
[2019-06-02] MEDS ORDERED: ACETAMINOPHEN 325 MG TABLET PO PRN (21:41)
[2019-06-02] MEDS ORDERED: NORMAL SALINE 1000 ML 1,000 ML IV SCH (21:45)
[2019-06-02] MEDS ORDERED: LACTULOSE SYRUP 20 GM/30 ML UDCUP PO ONE (22:15)
[2019-06-02] MEDS ORDERED: HEPARIN SOD (PORCINE) 5,000 UNIT/ML 1 ML VIAL ONE (23:11)
[2019-06-02 23:12] LABS: URINE AMPHETAMINES SCREEN UNCONFIRMED POSITIVE; URINE BARBITURATES SCREEN NEGATIVE; URINE BENZODIAZEPINES SCREEN UNCONFIRMED POSITIVE; URINE COCAINE SCREEN NEGATIVE; URINE MARIJUANA (THC) SCREEN NEGATIVE; URINE METHADONE SCREEN NEGATIVE; URINE PHENCYCLIDINE SCREEN NEGATIVE
[2019-06-02] MEDS: KETOROLAC TROMETHAMINE INJ/PF 30 MG/1 ML SDV IV PRN (23:12)
[2019-06-02] MEDS: HEPARIN SOD (PORCINE) 5,000 UNIT/ML 1 ML VIAL SUBCUT SCH (23:15)
[2019-06-02] MEDS: NORMAL SALINE 1000 ML 1,000 ML IV PRN (23:17)
[2019-06-03] MEDS: NORMAL SALINE 1000 ML 1,000 ML IV PRN (03:29)
[2019-06-03] MEDS ORDERED: DIAZEPAM 5 MG TABLET PO PRN (04:20)
--- NOTE | 2019-06-03 04:28 | PDOC H&P ---
History of Present Illness Admission Date/PCP: 06/02/19 21:49 Patient complains of: Abdominal pain History of Present Illness: LISA RUIZ is a 48 year old female with a past medical history of morbid obesity, chronic pain, depression anxiety and insulin-dependent diabetes. She presents with 4 days of generalized abdominal pain nausea with p.o. intake. In the emergency department she is found to have a CT remarkable for pancreatic head inflammation and an elevated lipase with unremarkable gallbladder on ultrasound. Patient denies new medication, alcohol, viral illness but admits to uncontrolled hyperglycemia and hypertriglyceridemia. She started on symptomatic management and referred to the hospitalist for admission. Past Medical History Cardiac Medical History: Reports: Hypertension Pulmonary Medical History: Reports: Asthma Endocrine Medical History: Reports: Diabetes Mellitus Type 1, Diabetes Mellitus Type 2 Malignancy Medical History: Reports: Brain Cancer - ASYTROCYTOMA, OPEN Bx & RESECTION PLANNED @ [facility] NEXT MONTH GI Medical History: Reports: Gastroesophageal Reflux Disease, Hiatal Hernia Psychiatric Medical History: Reports: Attention Deficit Hyperactivity Disorder, Depression - anxiety Past Surgical History Past Surgical History: Reports: Section - x3 Social History Information Source: Patient, [facility] Records Smoking Status: Current Every Day Smoker Cigarettes Packs Per Day: 0.7 Last Time Smoked: 06/02/18 Frequency of Alcohol Use: None Hx Recreational Drug Use: No Drugs: None Hx Prescription Drug Abuse: No - Advance Directive Resuscitation Status: Full Code Family History Family History: denies: Malignancy Parental Family History Reviewed: Yes Children Family History Reviewed: Yes Sibling(s) Family History Reviewed.: Yes Medication/Allergy Home Medications: Albuterol Sulfate [Proair Hfa Inhalation Aerosol 8.5 gm Mdi] 2 puff IH Q6HP PRN 06/02/19 Clonidine HCl [Catapres 0.3 mg Tablet] 0.3 mg PO QHS 06/02/19 Diazepam [Valium] 10 mg PO HSP PRN 06/02/19 Duloxetine HCl [Cymbalta 30 mg Capsule.dr] 30 mg PO BID 06/02/19 Gabapentin [Neurontin 300 mg Capsule] 300 mg PO Q12 06/02/19 Ibuprofen [Motrin 800 mg Tablet] 800 mg PO Q8HP PRN 06/02/19 Insulin Glargine,Hum.rec.anlog [Lantus Insulin 100 Unit/1 ml 10 ml] 80 unit SUBCUT Q12 06/02/19 Insulin Lispro [Humalog Insulin 100 Unit/1 ml 3 ml Vial] 0 unit SUBCUT .SLD SCALE 06/02/19 Lisdexamfetamine Dimesylate [Vyvanse] 70 mg PO QAM 06/02/19 Losartan Potassium [Cozaar 50 mg Tablet] 50 mg PO DAILY 06/02/19 Metoprolol Succinate [Toprol XL 100 mg Tablet] 100 mg PO DAILY 06/02/19 Ondansetron HCl [Zofran 8 mg Tablet] 8 mg PO Q8HP PRN 06/02/19 Allergies/Adverse Reactions: amoxicillin [Amoxicillin] Allergy (Verified 06/02/19 15:22) cephalexin Allergy (Verified 06/02/19 15:22) fenofibrate [From Tricor] Allergy (Verified 06/02/19 15:22) metformin Adverse Reaction (Verified 06/02/19 15:22) sitagliptin [From Januvia] Adverse Reaction (Verified 06/02/19 15:22) Review of Systems ROS unobtainable: Due to mental status - Patient answers affirmatively to all qu estions and felt an unreliable historian. Constitutional: ABSENT: chills, fever(s), headache(s), weight gain, weight loss Eyes: ABSENT: visual disturbances Ears: ABSENT: hearing changes Cardiovascular: ABSENT: chest pain, dyspnea on exertion, edema, orthropnea, palpitations Respiratory: ABSENT: cough, hemoptysis Gastrointestinal: ABSENT: abdominal pain, constipation, diarrhea, hematemesis, hematochezia, nausea, vomiting Genitourinary: ABSENT: dysuria, hematuria Musculoskeletal: ABSENT: joint swelling Integumentary: ABSENT: rash, wounds Neurological: ABSENT: abnormal gait, abnormal speech, confusion, dizziness, focal weakness, syncope Psychiatric: ABSENT: anxiety, depression, homidical ideation, suicidal ideation Endocrine: ABSENT: cold intolerance, heat intolerance, polydipsia, polyuria Hematologic/Lymphatic: ABSENT: easy bleeding, easy bruising Physical Exam Vital Signs: Temp Pulse Resp BP Pulse Ox 99.3 F 120 H 18 155/74 H 93 06/03/19 04:08 06/02/19 14:50 06/03/19 04:01 06/03/19 04:01 06/03/19 04:01 Intake & Output 06/01/19 06/02/19 06/03/19 11:59 11:59 11:59 Intake Total 3030 Balance 3030 Weight 108.1 kg General appearance: PRESENT: cooperative, mild distress, morbidly obese, well- developed Head exam: PRESENT: atraumatic Eye exam: PRESENT: conjunctiva pink, EOMI, PERRLA. ABSENT: scleral icterus Ear exam: PRESENT: normal external ear exam Mouth exam: PRESENT: moist, tongue midline Neck exam: ABSENT: carotid bruit, JVD, lymphadenopathy, thyromegaly Respiratory exam: PRESENT: clear to auscultation [place]. ABSENT: rales, rhonchi, wheezes Cardiovascular exam: PRESENT: RRR. ABSENT: diastolic murmur, rubs, systolic murmur GI/Abdominal exam: PRESENT: guarding - False guarding, soft, other - Abdominal pain to light touch with stethoscope. ABSENT: distended, firm Rectal exam: PRESENT: deferred Extremities exam: PRESENT: full ROM. ABSENT: calf tenderness, clubbing, pedal edema Neurological exam: PRESENT: alert, awake, oriented to person, oriented to place, oriented to time, oriented to situation, CN II-XII grossly intact. ABSENT: mot or sensory deficit Psychiatric exam: PRESENT: agitated, anxious, unusual affect. ABSENT: flat affect, homicidal ideation, manic, suicidal ideation Skin exam: PRESENT: dry, intact, warm. ABSENT: cyanosis, rash Results Laboratory Results: 06/02/19 15:40 06/02/19 15:40 06/02/19 06/02/19 15:40 15:40 WBC 11.9 H RBC 4.88 Hgb 13.3 Hct 39.7 MCV 81 MCH 27.3 MCHC 33.5 RDW 15.4 H Plt Count 253 Seg Neutrophils % 86.4 H Sodium 133.0 L Potassium 4.7 Chloride 99 Carbon Dioxide 21 L Anion Gap 13 BUN 2 L Creatinine 0.40 L Est GFR ( Amer) > 60 Glucose 219 H Calcium 8.8 Total Bilirubin 1.4 H AST 46 H Alkaline Phosphatase 106 Total Protein 8.1 Albumin 4.2 Lipase 446.3 H Impressions: Abdomen/Pelvis CT 06/02/19 16:43 IMPRESSION: 1. FINDINGS CONSISTENT WITH ACUTE PANCREATITIS. NO ABNORMAL FLUID COLLECTIONS. 2. FATTY INFILTRATION OF THE LIVER. 3. NO OTHER SIGNIFICANT OR ACUTE FINDING IN THE ABDOMEN OR PELVIS ON CT SCAN WITH IV CONTRAST. Abdomen Ultrasound 06/02/19 19:34 IMPRESSION: 1. Slightly enlarged pancreatic head as seen on CT. No peripancreatic fluid collection, although much of the pancreas is not visualized due to artifact. 2. No gallstones or sonographic evidence for acute cholecystitis 3. No biliary ductal distention Assessment and Plan - Diagnosis (1) Acute pancreatitis Qualifiers: Pancreatitis type: unspecified pancreatitis type Acute pancreatitis complication: unspecified Qualified Code(s): K85.90 - Acute pancreatitis without necrosis or infection, unspecified Is this a current diagnosis for this admission?: Yes Plan: Most likely secondary to hypertriglyceridemia versus uncontrolled diabetes. Bowel rest, symptomatic management, hydration, follow-up chemistry and lipid profile. (2) Hyperglycemia due to type 1 diabetes mellitus Is this a current diagnosis for this admission?: Yes Plan: Half dose long-acting insulin, Humalog sliding scale every 6 hours while n.p.o. - Time Time Spent with patient: 35 or more minutes - Inpatient Certification Medical Necessity: Need Close Monitoring Due to Risk of Patient Decompensation
[2019-06-03] MEDS: HEPARIN SOD (PORCINE) 5,000 UNIT/ML 1 ML VIAL SUBCUT SCH ×3 (05:33→21:45)
[2019-06-03 05:51] LABS: ABSOLUTE BASOPHILS # (AUTO) 0.1 10^3/uL (0.0-0.2); ABSOLUTE EOSINOPHILS # (AUTO) 0.1 10^3/uL (0.0-0.6); ABSOLUTE LYMPHOCYTES (AUTO) 1.1 10^3/uL (0.5-4.7); ABSOLUTE MONOCYTES (AUTO) 0.5 10^3/uL (0.1-1.4); ABSOLUTE NEUT (AUTO) 6.9 10^3/uL (1.7-8.2); BASOPHILS % (AUTO) 0.9 % (0-2); EOSINOPHILS % (AUTO) 1.3 % (0-6); HEMATOCRIT 37.4 % (36.0-47.0); LYMPHOCYTES % (AUTO) 12.4 % (13-45); MEAN CORPUSCULAR HEMOGLOBIN 28.2 pg (27.0-33.4); MEAN CORPUSCULAR HGB CONC 34.4 g/dL (32.0-36.0); MEAN CORPUSCULAR VOLUME 82 fl (80-97); MONOCYTES % (AUTO) 5.6 % (3-13); PLATELET COUNT 183 10^3/uL (150-450); RED BLOOD COUNT 4.57 10^6/uL (3.72-5.28); RED CELL DISTRIBUTION WIDTH 15.4 % (11.5-14.0); SEGMENTED NEUTROPHILS % (AUTO) 79.8 % (42-78); TOTAL CELLS COUNTED % (AUTO) 100 %; WHITE BLOOD COUNT 8.6 10^3/uL (4.0-10.5)
[2019-06-03 05:56] LABS: HEMOGLOBIN 12.9 g/dL (12.0-15.5)
[2019-06-03 06:11] LABS: ALBUMIN 3.4 g/dL (3.5-5.0); ALKALINE PHOSPHATASE 89 U/L (38-126); ASPARTATE AMINO TRANSFERASE 21 U/L (14-36); BILIRUBIN,DIRECT 0.3 mg/dL (0.0-0.4); BILIRUBIN,TOTAL 0.9 mg/dL (0.2-1.3); BLOOD UREA NITROGEN 2 mg/dL (7-20); CALCIUM 8.4 mg/dL (8.4-10.2); CHLORIDE 104 mmol/L (98-107); CHOLESTEROL 257.93 mg/dL (0-200); GLUCOSE 203 mg/dL (75-110); TOTAL PROTEIN 6.5 g/dL (6.3-8.2)
[2019-06-03 06:23] LABS: DIRECT LDL < 30 mg/dL (<100); TRIGLYCERIDES 1120 mg/dL (<150)
[2019-06-03 06:39] LABS: ANION GAP 10 (5-19); CARBON DIOXIDE 22 mmol/L (22-30)
[2019-06-03 06:49] LABS: POTASSIUM 3.6 mmol/L (3.6-5.0)
[2019-06-03] MEDS ORDERED: ONDANSETRON HCL 8 MG TABLET PO PRN (09:05)
[2019-06-03] MEDS: INSULIN GLARGINE,HUM.REC.ANLOG 1,000 UNIT/10 ML VIAL SUBCUT SCH ×2 (09:25→22:05)
--- NOTE | 2019-06-03 10:13 | PDOC PROGRESS REPORT ---
Subjective Progress Note for:: 06/03/19 Subjective:: Patient is in quite a bit of pain. She has had multiple back surgeries for spinal cord issues. She does not report any nausea at this time. Interestingly, she left the emergency room at [place] prior to being evaluated. She was sent to the emergency department by her security system engineer that she was seen that day. She also left AMA before being seen at this hospital yesterday. She then came back in last night. She has been discomfort and this is clearly reflected in her presentation. Reason For Visit: MORBID OBESITY ACUTE PANCREATITIS Physical Exam Vital Signs: Temp Pulse Resp BP Pulse Ox 99.3 F 101 H 20 161/81 H 95 06/03/19 04:08 06/03/19 08:00 06/03/19 08:00 06/03/19 08:00 06/03/19 08:00 Intake & Output 06/02/19 06/03/19 06/04/19 06:59 06:59 06:59 Intake Total 3030 Balance 3030 Weight 108.1 kg General appearance: PRESENT: cooperative, morbidly obese, well-developed, well- nourished Head exam: PRESENT: atraumatic, normocephalic Eye exam: PRESENT: conjunctiva pink. ABSENT: scleral icterus Ear exam: PRESENT: normal external ear exam. ABSENT: bleeding, drainage Respiratory exam: PRESENT: clear to auscultation [place], symmetrical, unlabored. ABSENT: accessory muscle use, rales, rhonchi, wheezes Cardiovascular exam: PRESENT: RRR, +S1, +S2, tachycardia - Borderline tachycardia GI/Abdominal exam: PRESENT: diminished bowel sounds, soft, other - Protuberant abdomen. ABSENT: tenderness Rectal exam: PRESENT: deferred Gentrourinary exam: ABSENT: indwelling catheter Extremities exam: ABSENT: joint swelling, pedal edema Musculoskeletal exam: PRESENT: normal inspection. ABSENT: ambulatory - Difficulty ambulating due to motor difficulties secondary to spinal cord surgeries/pathology. Neurological exam: PRESENT: alert, awake, oriented to person, oriented to place, oriented to time, oriented to situation Psychiatric exam: PRESENT: flat affect. ABSENT: agitated, anxious Focused psych exam: ABSENT: delusional, restlessness Skin exam: PRESENT: dry, normal color, warm. ABSENT: rash Results Laboratory Results: 06/03/19 05:37 06/03/19 05:37 06/02/19 06/02/19 06/03/19 15:40 15:40 05:37 WBC 11.9 H 8.6 RBC 4.88 4.57 Hgb 13.3 12.9 Hct 39.7 37.4 MCV 81 82 MCH 27.3 28.2 MCHC 33.5 34.4 RDW 15.4 H 15.4 H Plt Count 253 183 Seg Neutrophils % 86.4 H 79.8 H Sodium 133.0 L Potassium 4.7 Chloride 99 Carbon Dioxide 21 L Anion Gap 13 BUN 2 L Creatinine 0.40 L Est GFR ( Amer) > 60 Glucose 219 H Calcium 8.8 Total Bilirubin 1.4 H AST 46 H Alkaline Phosphatase 106 Total Protein 8.1 Albumin 4.2 Triglycerides Cholesterol LDL Cholesterol Direct HDL Cholesterol Lipase 446.3 H 06/03/19 05:37 WBC RBC Hgb Hct MCV MCH MCHC RDW Plt Count Seg Neutrophils % Sodium 136.0 L Potassium 3.6 D Chloride 104 Carbon Dioxide 22 Anion Gap 10 BUN 2 L Creatinine 0.44 L Est GFR ( Amer) > 60 Glucose 203 H Calcium 8.4 Total Bilirubin 0.9 AST 21 Alkaline Phosphatase 89 Total Protein 6.5 Albumin 3.4 L Triglycerides 1120 H Cholesterol 257.93 H LDL Cholesterol Direct < 30 HDL Cholesterol 22 L Lipase Impressions: Abdomen/Pelvis CT 06/02/19 16:43 IMPRESSION: 1. FINDINGS CONSISTENT WITH ACUTE PANCREATITIS. NO ABNORMAL FLUID COLLECTIONS. 2. FATTY INFILTRATION OF THE LIVER. 3. NO OTHER SIGNIFICANT OR ACUTE FINDING IN THE ABDOMEN OR PELVIS ON CT SCAN WITH IV CONTRAST. Abdomen Ultrasound 06/02/19 19:34 IMPRESSION: 1. Slightly enlarged pancreatic head as seen on CT. No peripancreatic fluid collection, although much of the pancreas is not visualized due to artifact. 2. No gallstones or sonographic evidence for acute cholecystitis 3. No biliary ductal distention Assessment and Plan - Diagnosis (1) Acute pancreatitis Qualifiers: Pancreatitis type: other Acute pancreatitis complication: unspecified Qualified Code(s): K85.80 - Other acute pancreatitis without necrosis or infection Is this a current diagnosis for this admission?: Yes Plan: From hypertriglyceridemia (2) Astrocytoma brain tumor Is this a current diagnosis for this admission?: Yes Plan: Being followed at [facility] (3) Syrinx of spinal cord Is this a current diagnosis for this admission?: Yes Plan: Being followed at [facility] (4) Hyperglycemia due to type 1 diabetes mellitus Is this a current diagnosis for this admission?: Yes Plan: Currently on long and short acting insulin (5) Morbid obesity Is this a current diagnosis for this admission?: Yes Plan: BMI 45.4 (6) Chronic pain Qualifiers: Chronic pain type: chronic pain syndrome Qualified Code(s): G89.4 - Chronic pain syndrome Is this a current diagnosis for this admission?: Yes Plan: Multiple medications at home (7) Hypertension Qualifiers: Hypertension type: essential hypertension Qualified Code(s): I10 - Essential (primary) hypertension Is this a current diagnosis for this admission?: Yes (8) Depression Qualifiers: Depression Type: unspecified Qualified Code(s): F32.9 - Major depressive disorder, single episode, unspecified Is this a current diagnosis for this admission?: Yes - Plan Summary Summary: Recurrent pancreatitis issues due to hypertriglyceridemia. Multiple spinal cord pathology/surgical issues with resultant motor weakness and pain tend to complicate her care. 06/03/2019- The patient is currently working with endocrinology at [place] for the hypertrigl yceridemia. This is the most likely etiology of the recurrent pancreatitis. She reports widely fluctuating triglyceride levels. Dr. Rodriguez does have a follow-up with the patient. She has tried multiple medications. I will defer to her for ongoing management. Diabetes-we increased the patient's Lantus. She will continue her sliding scale as before. Follow-up with endocrinology as noted above. Central nervous system-the patient is followed by the neurosurgical team at [place]. Continue to work on her spinal cord and astrocytoma. Multiple follow-ups scheduled in the upcoming weeks. Hypertension, depression and chronic pain-resume home medication regimen. She has been having difficulty with prior authorization with her Vyvanse. I will defer to her primary care provider who has been working on the prior authorization for this medication for the patient's ADHD. - Time Time Spent with patient: 15-24 minutes Medications reviewed and adjusted accordingly: Yes Anticipated discharge: Home Within: within 48 hours
[2019-06-03] MEDS: KETOROLAC TROMETHAMINE INJ/PF 30 MG/1 ML SDV IV PRN (10:35)
[2019-06-03] MEDS: DULOXETINE HCL 30 MG CAPSULE.DR PO SCH ×2 (10:37→17:09)
[2019-06-03] MEDS: GABAPENTIN 300 MG CAPSULE PO SCH ×2 (10:37→21:40)
[2019-06-03] MEDS: METOPROLOL SUCCINATE 50 MG TAB.SR.24H PO SCH (10:37)
[2019-06-03] MEDS: LOSARTAN POTASSIUM 50 MG TABLET PO SCH (10:37)
[2019-06-03] MEDS: IBUPROFEN 800 MG TABLET PO PRN (16:58)
[2019-06-03] MEDS ORDERED: CLONIDINE HCL 0.1 MG TABLET PO SCH (22:00)
[2019-06-04] MEDS: HEPARIN SOD (PORCINE) 5,000 UNIT/ML 1 ML VIAL SUBCUT SCH ×2 (05:39→14:47)
[2019-06-04] MEDS: IBUPROFEN 800 MG TABLET PO PRN (06:09)
[2019-06-04] MEDS: LOSARTAN POTASSIUM 50 MG TABLET PO SCH (10:08)
[2019-06-04] MEDS: METOPROLOL SUCCINATE 50 MG TAB.SR.24H PO SCH (10:08)
[2019-06-04] MEDS: GABAPENTIN 300 MG CAPSULE PO SCH (10:08)
[2019-06-04] MEDS: DULOXETINE HCL 30 MG CAPSULE.DR PO SCH (10:09)
[2019-06-04] MEDS: INSULIN GLARGINE,HUM.REC.ANLOG 1,000 UNIT/10 ML VIAL SUBCUT SCH (10:09)
--- NOTE | 2019-06-04 14:33 | PDOC DISCHARGE SUMMARY ---
Impression - Admit/DC Date/PCP Admission Date/Primary Care Provider: 06/04/19 12:44 Discharge Date: 06/04/19 - Assessment Summary: Recurrent pancreatitis issues due to hypertriglyceridemia. Multiple spinal cord pathology/surgical issues with resultant motor weakness and pain tend to complicate her care. - Additional Information Resuscitation Status: Full Code Referrals: TAI COLLINS MD [NO LOCAL MD] - 07/03/19 3:20 pm Home Medications: Albuterol Sulfate [Proair Hfa Inhalation Aerosol 8.5 gm Mdi] 2 puff IH Q6HP PRN 06/02/19 Clonidine HCl [Catapres 0.3 mg Tablet] 0.3 mg PO QHS 06/02/19 Diazepam [Valium] 10 mg PO HSP PRN 06/02/19 Duloxetine HCl [Cymbalta 30 mg Capsule.dr] 30 mg PO BID 06/02/19 Gabapentin [Neurontin 300 mg Capsule] 300 mg PO Q12 06/02/19 Ibuprofen [Motrin 800 mg Tablet] 800 mg PO Q8HP PRN 06/02/19 Insulin Glargine,Hum.rec.anlog [Lantus Insulin 100 Unit/1 ml 10 ml] 80 unit SUBCUT Q12 06/02/19 Insulin Lispro [Humalog Insulin 100 Unit/1 ml 3 ml Vial] 0 unit SUBCUT .SLD SCALE 06/02/19 Lisdexamfetamine Dimesylate [Vyvanse] 70 mg PO QAM 06/02/19 Losartan Potassium [Cozaar 50 mg Tablet] 50 mg PO DAILY 06/02/19 Metoprolol Succinate [Toprol XL 100 mg Tablet] 100 mg PO DAILY 06/02/19 Ondansetron HCl [Zofran 8 mg Tablet] 8 mg PO Q8HP PRN 06/02/19 History of Present Illiness History of Present Illness: LISA RUIZ is a 48 year old female Physical Exam Vital Signs: Temp Pulse Resp BP Pulse Ox 98.4 F 71 16 144/65 H 95 06/04/19 07:31 06/04/19 14:00 06/04/19 11:00 06/04/19 07:31 06/04/19 11:00 Intake & Output 06/03/19 06/04/19 06/05/19 06:59 06:59 06:59 Intake Total 3030 2560 675 Balance 3030 2560 670 Weight 108.1 kg 108.9 kg Results Laboratory Results: WBC 8.6 10^3/uL (4.0-10.5) 06/03/19 05:37 RBC 4.57 10^6/uL (3.72-5.28) 06/03/19 05:37 Hgb 12.9 g/dL (12.0-15.5) 06/03/19 05:37 Hct 37.4 % (36.0-47.0) 06/03/19 05:37 MCV 82 fl (80-97) 06/03/19 05:37 MCH 28.2 pg (27.0-33.4) 06/03/19 05:37 MCHC 34.4 g/dL (32.0-36.0) 06/03/19 05:37 RDW 15.4 % (11.5-14.0) H 06/03/19 05:37 Plt Count 183 10^3/uL (150-450) 06/03/19 05:37 Lymph % (Auto) 12.4 % (13-45) L 06/03/19 05:37 [place] % (Auto) 5.6 % (3-13) 06/03/19 05:37 Eos % (Auto) 1.3 % (0-6) 06/03/19 05:37 Baso % (Auto) 0.9 % (0-2) 06/03/19 05:37 Absolute Neuts (auto) 6.9 10^3/uL (1.7-8.2) 06/03/19 05:37 Absolute Lymphs (auto) 1.1 10^3/uL (0.5-4.7) 06/03/19 05:37 Absolute Monos (auto) 0.5 10^3/uL (0.1-1.4) 06/03/19 05:37 Absolute Eos (auto) 0.1 10^3/uL (0.0-0.6) 06/03/19 05:37 Absolute Basos (auto) 0.1 10^3/uL (0.0-0.2) 06/03/19 05:37 Seg Neutrophils % 79.8 % (42-78) H 06/03/19 05:37 Sodium 136.0 mmol/L (137-145) L 06/03/19 05:37 Potassium 3.6 mmol/L (3.6-5.0) D 06/03/19 05:37 Chloride 104 mmol/L (98-107) 06/03/19 05:37 Carbon Dioxide 22 mmol/L (22-30) 06/03/19 05:37 Anion Gap 10 (5-19) 06/03/19 05:37 BUN 2 mg/dL (7-20) L 06/03/19 05:37 Creatinine 0.44 mg/dL (0.52-1.25) L 06/03/19 05:37 Est GFR ( Amer) > 60 (>60) 06/03/19 05:37 Est GFR (MDRD) Non-Af > 60 (>60) 06/03/19 05:37 Glucose 203 mg/dL (75-110) H 06/03/19 05:37 POC Glucose 247 mg/dL (70-110) H 06/04/19 12:11 Hemoglobin A1c % 9.8 % (4.7-6.0) H 06/03/19 05:37 Calcium 8.4 mg/dL (8.4-10.2) 06/03/19 05:37 Total Bilirubin 0.9 mg/dL (0.2-1.3) 06/03/19 05:37 Direct Bilirubin 0.3 mg/dL (0.0-0.4) 06/03/19 05:37 Neonat Total Bilirubin Not Reportable 06/03/19 05:37 Neonat Direct Bilirubin Not Reportable 06/03/19 05:37 Neonat Indirect Bili Not Reportable 06/03/19 05:37 AST 21 U/L (14-36) 06/03/19 05:37 ALT 16 U/L (<35) 06/03/19 05:37 Alkaline Phosphatase 89 U/L (38-126) 06/03/19 05:37 Total Protein 6.5 g/dL (6.3-8.2) 06/03/19 05:37 Albumin 3.4 g/dL (3.5-5.0) L 06/03/19 05:37 Triglycerides 1120 mg/dL (<150) H 06/03/19 05:37 Cholesterol 257.93 mg/dL (0-200) H 06/03/19 05:37 LDL Cholesterol Direct < 30 mg/dL (<100) 06/03/19 05:37 VLDL Cholesterol, Calc UNABLE TO CALCULATE 06/03/19 05:37 HDL Cholesterol 22 mg/dL (>40) L 06/03/19 05:37 Lipase 446.3 U/L (23-300) H 06/02/19 15:40 Urine Opiates Screen UNCONFIRMED POSITIVE 06/02/19 22:30 Urine Methadone Screen NEGATIVE 06/02/19 22:30 Ur Barbiturates Screen NEGATIVE 06/02/19 22:30 Ur Phencyclidine Scrn NEGATIVE 06/02/19 22:30 Ur Amphetamines Screen UNCONFIRMED POSITIVE 06/02/19 22:30 U Benzodiazepines Scrn UNCONFIRMED POSITIVE 06/02/19 22:30 Urine Cocaine Screen NEGATIVE 06/02/19 22:30 U Marijuana (THC) Screen NEGATIVE 06/02/19 22:30 Impressions: Abdomen/Pelvis CT 06/02/19 16:43 IMPRESSION: 1. FINDINGS CONSISTENT WITH ACUTE PANCREATITIS. NO ABNORMAL FLUID COLLECTIONS. 2. FATTY INFILTRATION OF THE LIVER. 3. NO OTHER SIGNIFICANT OR ACUTE FINDING IN THE ABDOMEN OR PELVIS ON CT SCAN WITH IV CONTRAST. Abdomen Ultrasound 06/02/19 19:34 IMPRESSION: 1. Slightly enlarged pancreatic head as seen on CT. No peripancreatic fluid collection, although much of the pancreas is not visualized due to artifact. 2. No gallstones or sonographic evidence for acute cholecystitis 3. No biliary ductal distention
[2019-06-04 15:05] VITALS: BP 163/68
--- NOTE | 2019-06-04 19:19 | PDOC DISCHARGE SUMMARY ---
Impression - Admit/DC Date/PCP Admission Date/Primary Care Provider: 06/04/19 12:44 Discharge Date: 06/04/19 - Discharge Diagnosis (1) Acute pancreatitis Is this a current diagnosis for this admission?: Yes (2) Astrocytoma brain tumor Is this a current diagnosis for this admission?: Yes (3) Syrinx of spinal cord Is this a current diagnosis for this admission?: Yes (4) Hyperglycemia due to type 1 diabetes mellitus Is this a current diagnosis for this admission?: Yes (5) Morbid obesity Is this a current diagnosis for this admission?: Yes (6) Chronic pain Is this a current diagnosis for this admission?: Yes (7) Hypertension Is this a current diagnosis for this admission?: Yes (8) Depression Is this a current diagnosis for this admission?: Yes - Assessment Summary: Recurrent pancreatitis issues due to hypertriglyceridemia. Multiple spinal cord pathology/surgical issues with resultant motor weakness and pain tend to complicate her care. 06/03/2019- The patient is currently working with endocrinology at [facility] for the hypertriglyceridemia. This is the most likely etiology of the recurrent pancreatitis. She reports widely fluctuating triglyceride levels. Dr. Collins does have a follow-up with the patient. She has tried multiple medications. I will defer to her for ongoing management. Diabetes-we increased the patient's Lantus. She will continue her sliding scale as before. Follow-up with endocrinology as noted above. Central nervous system-the patient is followed by the neurosurgical team at [facility]. Continue to work on her spinal cord and astrocytoma. Multiple follow-ups scheduled in the upcoming weeks. Hypertension, depression and chronic pain-resume home medication regimen. She has been having difficulty with prior authorization with her Vyvanse. I will defer to her primary care provider who has been working on the prior authorization for this medication for the patient's ADHD. - Additional Information Resuscitation Status: Full Code Discharge Diet: Cardiac, Diabetic Discharge Activity: Activity As Tolerated Referrals: TAI COLLINS MD [NO LOCAL MD] - 07/03/19 3:20 pm Home Medications: Albuterol Sulfate [Proair HFA Inhalation Aerosol 8.5 gm MDI] 2 puff IH Q6HP PRN 06/02/19 Clonidine HCl [Catapres 0.3 mg Tablet] 0.3 mg PO QHS 06/02/19 Diazepam [Valium] 10 mg PO HSP PRN 06/02/19 Duloxetine HCl [Cymbalta 30 mg Capsule.dr] 30 mg PO BID 06/02/19 Gabapentin [Neurontin 300 mg Capsule] 300 mg PO Q12 06/02/19 Ibuprofen [Motrin 800 mg Tablet] 800 mg PO Q8HP PRN 06/02/19 Insulin Glargine,Hum.rec.anlog [Lantus Insulin 100 Unit/1 ml 10 ml] 80 unit SUBCUT Q12 06/02/19 Insulin Lispro [Humalog Insulin (Lispro) 100 unit/mL] 0 unit SUBCUT .SLD SCALE 06/02/19 Lisdexamfetamine Dimesylate [Vyvanse] 70 mg PO QAM 06/02/19 Losartan Potassium [Cozaar 50 mg Tablet] 50 mg PO DAILY 06/02/19 Metoprolol Succinate [Toprol XL 100 mg Tablet] 100 mg PO DAILY 06/02/19 Ondansetron HCl [Zofran 8 mg Tablet] 8 mg PO Q8HP PRN 06/02/19 History of Present Illiness History of Present Illness: LISA RUIZ is a 48 year old female with a history of morbid obesity, chronic pain, depression with anxiety, hypertension and insulin-dependent diabetes mellitus. Over the last 4 days she has had abdominal pain with nausea. She has had limited oral intake. She has had recurrent pancreatitis due to significant hypertriglyceridemia. She was recently seen by her piano teacher at [facility]. She was referred to the emergency department for admission. Due to an ex acerbation of pain she left the emergency department. She presented to the emergency department at [place]. Again due to pain and a wait time to see the physician she left without being seen. She did return yesterday morning and was evaluated. She was found to have pancreatitis and hyperglycemia. She was referred to the hospital service for admission. Hospital Course Hospital Course: The patient had a fairly unremarkable hospital course. Her lipase was minimally elevated on admission (400). Her triglyceride level was 1120. Her nausea abated fairly quickly. She was given clear liquids and tolerated them quite well. She in fact was feeling much better today. This was very evident in her clinical presentation. She reports that she even walked in the hallway earlier. Because of this clinical improvement from yesterday I feel it is appropriate for her to return home. The majority of her medication regimen will remain unchanged with the exception of increased dosing of Lantus at this time. I instructed her to advance her diet slowly as well. Physical Exam Vital Signs: Temp Pulse Resp BP Pulse Ox 98.4 F 71 16 163/68 H 95 06/04/19 15:01 06/04/19 15:01 06/04/19 15:01 06/04/19 15:01 06/04/19 15:01 Intake & Output 06/03/19 06/04/19 06/05/19 06:59 06:59 06:59 Intake Total 3030 2560 675 Balance 3030 2560 675 Weight 108.1 kg 108.9 kg General appearance: PRESENT: no acute distress, cooperative, morbidly obese, well-developed Head exam: PRESENT: normocephalic Respiratory exam: PRESENT: clear to auscultation [place], symmetrical, unlabored. ABSENT: rhonchi, tachypnea, wheezes Cardiovascular exam: PRESENT: RRR, +S1, +S2 GI/Abdominal exam: PRESENT: normal bowel sounds, soft, other - Protuberant abdomen. ABSENT: guarding, tenderness Rectal exam: PRESENT: deferred Gentrourinary exam: ABSENT: indwelling catheter Musculoskeletal exam: PRESENT: ambulatory Neurological exam: PRESENT: alert, awake, oriented to person, oriented to place, oriented to time, oriented to situation, CN II-XII grossly intact Psychiatric exam: PRESENT: appropriate affect, normal mood. ABSENT: agitated, anxious Focused psych exam: ABSENT: delusional, restlessness Skin exam: PRESENT: dry, normal color, warm. ABSENT: rash Results Laboratory Results: WBC 8.6 10^3/uL (4.0-10.5) 06/03/19 05:37 RBC 4.57 10^6/uL (3.72-5.28) 06/03/19 05:37 Hgb 12.9 g/dL (12.0-15.5) 06/03/19 05:37 Hct 37.4 % (36.0-47.0) 06/03/19 05:37 MCV 82 fl (80-97) 06/03/19 05:37 MCH 28.2 pg (27.0-33.4) 06/03/19 05:37 MCHC 34.4 g/dL (32.0-36.0) 06/03/19 05:37 RDW 15.4 % (11.5-14.0) H 06/03/19 05:37 Plt Count 183 10^3/uL (150-450) 06/03/19 05:37 Lymph % (Auto) 12.4 % (13-45) L 06/03/19 05:37 [place] % (Auto) 5.6 % (3-13) 06/03/19 05:37 Eos % (Auto) 1.3 % (0-6) 06/03/19 05:37 Baso % (Auto) 0.9 % (0-2) 06/03/19 05:37 Absolute Neuts (auto) 6.9 10^3/uL (1.7-8.2) 06/03/19 05:37 Absolute Lymphs (auto) 1.1 10^3/uL (0.5-4.7) 06/03/19 05:37 Absolute Monos (auto) 0.5 10^3/uL (0.1-1.4) 06/03/19 05:37 Absolute Eos (auto) 0.1 10^3/uL (0.0-0.6) 06/03/19 05:37 Absolute Basos (auto) 0.1 10^3/uL (0.0-0.2) 06/03/19 05:37 Seg Neutrophils % 79.8 % (42-78) H 06/03/19 05:37 Sodium 136.0 mmol/L (137-145) L 06/03/19 05:37 Potassium 3.6 mmol/L (3.6-5.0) D 06/03/19 05:37 Chloride 104 mmol/L (98-107) 06/03/19 05:37 Carbon Dioxide 22 mmol/L (22-30) 06/03/19 05:37 Anion Gap 10 (5-19) 06/03/19 05:37 BUN 2 mg/dL (7-20) L 06/03/19 05:37 Creatinine 0.44 mg/dL (0.52-1.25) L 06/03/19 05:37 Est GFR ( Amer) > 60 (>60) 06/03/19 05:37 Est GFR (MDRD) Non-Af > 60 (>60) 06/03/19 05:37 Glucose 203 mg/dL (75-110) H 06/03/19 05:37 POC Glucose 247 mg/dL (70-110) H 06/04/19 12:11 Hemoglobin A1c % 9.8 % (4.7-6.0) H 06/03/19 05:37 Calcium 8.4 mg/dL (8.4-10.2) 06/03/19 05:37 Total Bilirubin 0.9 mg/dL (0.2-1.3) 06/03/19 05:37 Direct Bilirubin 0.3 mg/dL (0.0-0.4) 06/03/19 05:37 Neonat Total Bilirubin Not Reportable 06/03/19 05:37 Neonat Direct Bilirubin Not Reportable 06/03/19 05:37 Neonat Indirect Bili Not Reportable 06/03/19 05:37 AST 21 U/L (14-36) 06/03/19 05:37 ALT 16 U/L (<35) 06/03/19 05:37 Alkaline Phosphatase 89 U/L (38-126) 06/03/19 05:37 Total Protein 6.5 g/dL (6.3-8.2) 06/03/19 05:37 Albumin 3.4 g/dL (3.5-5.0) L 06/03/19 05:37 Triglycerides 1120 mg/dL (<150) H 06/03/19 05:37 Cholesterol 257.93 mg/dL (0-200) H 06/03/19 05:37 LDL Cholesterol Direct < 30 mg/dL (<100) 06/03/19 05:37 VLDL Cholesterol, Calc UNABLE TO CALCULATE 06/03/19 05:37 HDL Cholesterol 22 mg/dL (>40) L 06/03/19 05:37 Lipase 446.3 U/L (23-300) H 06/02/19 15:40 Urine Opiates Screen UNCONFIRMED POSITIVE 06/02/19 22:30 Urine Methadone Screen NEGATIVE 06/02/19 22:30 Ur Barbiturates Screen NEGATIVE 06/02/19 22:30 Ur Phencyclidine Scrn NEGATIVE 06/02/19 22:30 Ur Amphetamines Screen UNCONFIRMED POSITIVE 06/02/19 22:30 U Benzodiazepines Scrn UNCONFIRMED POSITIVE 06/02/19 22:30 Urine Cocaine Screen NEGATIVE 06/02/19 22:30 U Marijuana (THC) Screen NEGATIVE 06/02/19 22:30 Impressions: Abdomen/Pelvis CT 06/02/19 16:43 IMPRESSION: 1. FINDINGS CONSISTENT WITH ACUTE PANCREATITIS. NO ABNORMAL FLUID COLLECTIONS. 2. FATTY INFILTRATION OF THE LIVER. 3. NO OTHER SIGNIFICANT OR ACUTE FINDING IN THE ABDOMEN OR PELVIS ON CT SCAN WITH IV CONTRAST. Abdomen Ultrasound 06/02/19 19:34 IMPRESSION: 1. Slightly enlarged pancreatic head as seen on CT. No peripancreatic fluid collection, although much of the pancreas is not visualized due to artifact. 2. No gallstones or sonographic evidence for acute cholecystitis 3. No biliary ductal distention Plan Health Concerns: Multiple comorbidities involving the central nervous system. Endocrine diseases with elevated triglycerides, recurrent pancreatitis and diabetes mellitus type 1. Morbid obesity is also in overall health concern considering her underlying hypertension, chronic pain and diabetes. Plan of Treatment: Recurrent pancreatitis from hypertriglyceridemia-the patient is scheduled to follow-up with her piano teacher Dr. Collins at [facility]. She is working on the hyperlipidemia as well as diabetes. The patient reports wide fluctuations in her lipid levels. According to the patient they have not settled on any one diagnosis or explanation. The patient has tried multiple lipid-lowering medications and she states that she has not tolerated them. Because of her hyperglycemia her Lantus dose was increased as noted above. I have asked her to continue the increased dose at this time until she sees her piano teacher. Central nervous system-the patient reports having had a syrinx repaired in her neck. There is also history of astrocytoma and I believe she is scheduled for a procedure at [facility] for this as well. Yesterday she was in pain and did not get out of bed. Today however she did walk in the hallway and feels much better. She has several follow-ups with the neurosurgical team at [facility] in the next few months. Chronic pain, depression and anxiety-she will return to her previous medication regimen. Her primary care provider is working on prior authorization for the Vyvanse for her ADHD. Goals: Ongoing investigation and treatment of her hyperlipidemia, better control of her diabetes and ongoing care by her neurosurgical team. She will return to her medication regimen treating the other comorbidities. Weight loss is encouraged due to her BMI of 45. Time Spent: Greater than 30 Minutes - Please fax a copy of the discharge summary as well as all of the laboratory studies to the patient's piano teacher Dr Collins fax number [phone] Stroke Is this a Stroke Patient?: No Acute Heart Failure - Is this a Heart Failure Patient?: No
== END 2019-06-04 15:41 | disposition home or self-care (01) | DRG 439 ==
LOC: ER 14:32 → INTOOBSV 21:49 → EH 21:49 → 5TH 06-03 12:34 → 3W 06-03 17:39 → OBSVTOIN 06-04 12:44
PROVIDERS: ADMIT Hospitalist; ATTEND Hospitalist
DX: K85.90 Acute pancreatitis without necrosis or infection, unspecified (principal); Z68.42 Body mass index [BMI] 45.0-49.9, adult; G95.0 Syringomyelia and syringobulbia; I10 Essential (primary) hypertension; K21.9 Gastro-esophageal reflux disease without esophagitis; D49.6 Neoplasm of unspecified behavior of brain; G89.4 Chronic pain syndrome; F17.210 Nicotine dependence, cigarettes, uncomplicated; E66.01 Morbid (severe) obesity due to excess calories; F90.9 Attention-deficit hyperactivity disorder, unspecified type; Z79.4 Long term (current) use of insulin; Z79.51 Long term (current) use of inhaled steroids; Z79.899 Other long term (current) drug therapy
CPT/HCPCS: 36415; 74177; 76705; 80053; 80061; 80307; 82962; 83036; 83690; 85025; 96361; 96374; 96375; 99285; G0378; J1644; J1815; J1885; J2270; J2405; J7030

== ENCOUNTER → 2020-01-19 | Outpatient (CLI) | payer MEDICAID ==
[2020-01-19 09:15] LABS: ALBUMIN 4.5 g/dL (3.5-5.0); ALKALINE PHOSPHATASE 95 U/L (38-126); ANION GAP 13 (5-19); ASPARTATE AMINO TRANSFERASE 35 U/L (14-36); BILIRUBIN,DIRECT 0.3 mg/dL (0.0-0.4); BILIRUBIN,TOTAL 0.7 mg/dL (0.2-1.3); BLOOD UREA NITROGEN 8 mg/dL (7-20); CALCIUM 9.7 mg/dL (8.4-10.2); CARBON DIOXIDE 24 mmol/L (22-30); CHLORIDE 103 mmol/L (98-107); GLUCOSE 74 mg/dL (75-110); POTASSIUM 4.2 mmol/L (3.6-5.0); TOTAL PROTEIN 7.7 g/dL (6.3-8.2)
[2020-01-19 13:09] LABS: CHOLESTEROL 212.75 mg/dL (0-200); TRIGLYCERIDES 436 mg/dL (<150)
[2020-01-19 13:20] LABS: DIRECT LDL 107 mg/dL (<100)
== END ==
LOC: OD 07:06
PROVIDERS: ATTEND Internal Medicine Endocrinology, Diabetes & Metabolism
DX: E11.9 Type 2 diabetes mellitus without complications (principal); Z79.4 Long term (current) use of insulin; E78.1 Pure hyperglyceridemia
CPT/HCPCS: 36415; 80053; 80061; 83036